=== PATIENT | female | born 1970 | race Caucasian/White ===

== ENCOUNTER 2018-04-13 08:11 | Emergency (ER) | payer OTHER ==
[2018-04-13] MEDS ORDERED: CLINDAMYCIN HCL 150 MG CAP ONE (08:31)
--- NOTE | 2018-04-13 08:33 | EDPHYS ---
Physician Documentation [facility] Name: Mojgan Hull Age: 47 yrs Sex: Female : 1970 Arrival Date: 04/13/2018 Time: 08:15 Bed 18 Private MD: None, None ED Physician Afshin Owusu HPI: 04/13 08:26 This 47 yrs old Female presents to ER via Ambulatory with complaints of rn Facial Swelling. 08:26 The patient presents with pain, swelling. Onset: The symptoms/episode began/occurred rn this morning. Modifying factors: The symptoms are alleviated by nothing, the symptoms are aggravated by nothing. Associated signs and symptoms: Pertinent positives: pain, redness in area, swelling. Severity of symptoms: At their worst the symptoms were mild, in the emergency department the symptoms are unchanged. The patient has not experienced similar symptoms in the past. Reports swelling to right upper gum and swelling of face, woke up like this, chronic dental issues. . 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 - Social history:: Smoking status: Patient/guardian denies using tobacco. - Family history:: not pertinent. - Hospitalizations: : No recent hospitalization is reported. ROS: 08:26 Constitutional: Negative for fever, chills, and weight loss, Eyes: Negative for injury, rn pain, redness, and discharge, ENT: + dental/gingival pain and swelling Neck: Negative for injury, pain, and swelling, Cardiovascular: Negative for chest pain, palpitations, and edema, Respiratory: Negative for shortness of breath, cough, wheezing, and pleuritic chest pain, Abdomen/GI: Negative for abdominal pain, nausea, vomiting, diarrhea, and constipation, MS/Extremity: Negative for injury and deformity, Skin: Negative for injury, rash, and discoloration, Neuro: Negative for headache, weakness, numbness, tingling, and seizure. Exam: 08:26 Constitutional: This is a well developed, well nourished patient who is awake, alert, rn and in no acute distress. Head/Face: Normocephalic, atraumatic. Eyes: Pupils equal round and reactive to light, extra-ocular motions intact. Lids and lashes normal. Conjunctiva and sclera are non-icteric and not injected. Cornea within normal limits. Periorbital areas with no swelling, redness, or edema. ENT: Right upper gum with 1cm swelling/fluctuance, + mild tenderness of buccal space without fluctuance. Neuro: Awake and alert, GCS 15, oriented to person, place, time, and situation. Cranial nerves II-XII grossly intact. Motor strength 5/5 in all extremities. Sensory grossly intact. Cerebellar exam normal. Normal gait. Vital Signs: 08:23 BP 140 / 97; Pulse 63; Resp 18 S; Pulse Ox 99% on R/A; iw MDM: 08:17 Patient medically screened. rn 08:26 Differential diagnosis: dental caries, gingivitis, dental abscess. Data reviewed: vital rn signs, nurses notes, and as a result, I will discharge patient. Counseling: I had a detailed discussion with the patient and/or guardian regarding: the historical points, exam findings, and any diagnostic results supporting the discharge/admit diagnosis, the need for outpatient follow up, to return to the emergency department if symptoms worsen or persist or if there are any questions or concerns that arise at home. Refusal of service: The patient/guardian displays adequate decision making capability and despite a detailed discussion of alternatives, benefits, risks, and consequences refuses: Incision and drainage of gingival abscess. Special discussion: Based on the history and exam findings, there is no indication for further emergent testing or inpatient evaluation. I discussed with the patient/guardian the need to see a dentist for further evaluation of the symptoms. ED course: Told patient she requires abx and drainage of abscess, she states would rather go to dentist, will give abx prescription, has insurance and able to f/u today/tomorrow. Return precautions given and understood. . Administered Medications: 08:49 Drug: Clindamycin 300 mg Route: PO; em 08:50 Follow up: Response: Medication administered at discharge. em Disposition: 04/13/18 08:32 Discharged to Home. Impression: Dental Abscess, Buccal space cellulitis. - Condition is Stable. - Discharge Instructions: Cellulitis, Dental Abscess. - Prescriptions for Clindamycin HCl 300 mg Oral Capsule - take 1 capsule by ORAL route every 6 hours for 10 days; 40 capsule. - Medication Reconciliation Form, Thank You Letter, Antibiotic Education, Prescription Opioid Use form. - Follow up: Private Physician; When: Upon discharge from the Emergency Department; Reason: Recheck today's complaints, Re-evaluation by your physician. - Problem is new. - Symptoms have improved. Signatures: Cody Castro, FAMILY CONSUMER SCIENCE FCS TEACHER FAMILY CONSUMER SCIENCE FCS TEACHER em Diane Burgess RN RN iw Afshin Owusu MD MD supervisor metal furniture assembly: (The following items were deleted from the chart) 08:28 08:26 Constitutional: This is a well developed, well nourished patient who is awake, rn alert, and in no acute distress. Head/Face: Normocephalic, atraumatic. ENT: Right upper gum with 1cm swelling/fluctuance, + mild tenderness of buccal space without fluctuance. Neuro: Awake and alert, GCS 15, oriented to person, place, time, and situation. Cranial nerves II-XII grossly intact. Motor strength 5/5 in all extremities. Sensory grossly intact. Cerebellar exam normal. Normal gait. rn 08:50 08:32 04/13/2018 08:32 Discharged to Home. Impression: Dental Abscess; Buccal space em cellulitis. Condition is Stable. Forms are Medication Reconciliation Form, Thank You Letter, Antibiotic Education, Prescription Opioid Use. Follow up: Private Physician; When: Upon discharge from the Emergency Department; Reason: Recheck today's complaints, Re-evaluation by your physician. Problem is new. Symptoms have improved. rn
--- NOTE | 2018-04-13 08:33 | ER ---
Nurse's Notes [facility] Name: Mojgan Hull Age: 47 yrs Sex: Female : 1970 Arrival Date: 04/13/2018 Time: 08:15 Bed 18 Private MD: None, None Diagnosis: Dental Abscess;Buccal space cellulitis Presentation: 04/13 08:22 Presenting complaint: Patient states: woke up with right sided facial swelling, states iw she feels a pus pocket on upper gums. Transition of care: patient was not received from another setting of care. Onset of symptoms was April 13, 2018. Initial Sepsis Screen: Does the patient meet any 2 criteria? No. Patient's initial sepsis screen is negative. Does the patient have a suspected source of infection? No. Patient's initial sepsis screen is negative. Care prior to arrival: None. 08:22 Method Of Arrival: Ambulatory iw 08:22 Acuity: KALEE 4 iw Triage Assessment: 08:24 General: Appears in no apparent distress. General: Behavior is calm, cooperative. Pain: em Complains of pain in right cheek Pain currently is 9 out of 10 on a pain scale. 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 - Social history:: Smoking status: Patient/guardian denies using tobacco. - Family history:: not pertinent. - Hospitalizations: : No recent hospitalization is reported. Screenin:24 Abuse screen: Denies threats or abuse. Nutritional screening: No deficits noted. em Tuberculosis screening: No symptoms or risk factors identified. Tuberculosis screening:. Fall Risk None identified. Assessment: 08:26 General: Appears in no apparent distress. Behavior is calm, cooperative. Pain: em Complains of pain in right cheek Pain currently is 9 out of 10 on a pain scale. Neuro: Level of Consciousness is awake, alert, Oriented to person, place, time, situation. Cardiovascular: Capillary refill < 3 seconds Patient's skin is warm and dry. Respiratory: Airway is patent Respiratory effort is even, unlabored, Respiratory pattern is regular, symmetrical. GI: Abdomen is round obese. : No signs and/or symptoms were reported regarding the genitourinary system. EENT: Oral mucosa is moist. Dental caries noted in upper left first molar (#14) and upper left second molar (#15). Derm: Skin is intact, Skin is pink, warm \T\ dry. Musculoskeletal: Range of motion: intact in all extremities. 08:40 Reassessment: Patient appears in no apparent distress at this time. I agree with above iw assessment by Cody Castro LVN. Vital Signs: 08:23 BP 140 / 97; Pulse 63; Resp 18 S; Pulse Ox 99% on R/A; iw ED Course: 08:15 Patient arrived in ED. mr 08:15 None, None is Private Physician. mr 08:17 Afshin Owusu MD is Attending Physician. rn 08:22 Triage completed. iw 08:24 Cody Castro LVN is Primary Nurse. em 08:25 Arm band placed on. em 08:25 Patient has correct armband on for positive identification. Bed in low position. Call em light in reach. 08:25 No provider procedures requiring assistance completed. Patient did not have IV access em during this emergency room visit. Administered Medications: 08:49 Drug: Clindamycin 300 mg Route: PO; em 08:50 Follow up: Response: Medication administered at discharge. em Outcome: 08:32 Discharge ordered by . rn 08:50 Discharged to home ambulatory. em 08:50 Condition: good 08:50 Discharge instructions given to patient. 08:50 Instructed on discharge instructions, follow up and referral plans. medication usage, Demonstrated understanding of instructions, follow-up care, medications, Prescriptions given X 1. 08:50 Patient left the ED. em Signatures: Amalia Martin Cody Castro LVN LVN em Diane Burgess RN RN iw Afshin Owusu MD MD sports team marketing intern: (The following items were deleted from the chart) 08:24 08:22 Acuity: KALEE 3 iw iw
== END 2018-04-13 08:50 | disposition home or self-care (01) ==
LOC: ER 08:11
DX: K12.2 Cellulitis and abscess of mouth (principal); K04.7 Periapical abscess without sinus; I10 Essential (primary) hypertension; Z88.0 Allergy status to penicillin; Z88.8 Allergy status to other drugs, medicaments and biological substances
CPT/HCPCS: 99283

== ENCOUNTER 2018-07-14 21:00 | Emergency (ER) | payer OTHER ==
[2018-07-14 21:28] LABS: Urine Blood 3+ (NEG); Urine Glucose NEGATIVE (NEG); Urine Protein 3+ (NEG); Urine Specific Gravity >1.030 (1.005-1.030); Urine pH 5.5 (5.0-7.0)
[2018-07-14] MEDS ORDERED: NA CHLORIDE 0.9% 1,000 ML ONE (22:05)
[2018-07-14 22:13] LABS: Absolute Lymphocytes (CBC) 2.6 K/uL (0.7-4.9); Absolute Monocytes 0.8 K/uL (0.1-1.3); Absolute Neutrophil 9.2 K/uL (1.8-8.0); Basophils % 0.2 % (0-1.3); Eosinophils % 0.9 % (0-4.4); Hematocrit 40.3 % (36.0-45.0); Lymphocytes % 20.5 % (15.3-44.8); MCH 29.9 pg (27.0-35.0); MCV 89.3 fL (80-100); MPV 10.1 fL (7.6-11.3); Monocytes % 6.4 % (3.3-12.3); RBC Red Blood Cell Count 4.52 M/uL (3.86-4.86)
[2018-07-14 22:20] LABS: Urine Bacteria <20 /HPF (<20); Urine Culture Reflex Order NOT NEEDED; Urine RBC 20-50 /HPF (NONE SEEN)
[2018-07-14 22:30] LABS: Bilirubin Direct 0.1 mg/dL (0-0.2); Bilirubin Total 0.3 mg/dL (0.2-1.0); Potassium 3.3 mmol/L (3.5-5.1); Protein, Total 7.6 g/dL (6.4-8.2)
[2018-07-14] MEDS ORDERED: ONDANSETRON 4 MG/2 ML VIAL ONE (23:03)
[2018-07-14] MEDS ORDERED: MORPHINE 4 MG/ML SYR ONE (23:03)
[2018-07-14] MEDS ORDERED: CEFTRIAXONE/SWI 1gm 1 GM/10 ML SYR ONE (23:03)
[2018-07-15] MEDS ORDERED: CIPROFLOXACIN HCL 500 MG TAB ONE (01:13)
--- NOTE | 2018-07-15 01:44 | EDPHYS ---
Physician Documentation [facility] Name: Mojgan Hull Age: 48 yrs Sex: Female : 1970 Arrival Date: 07/14/2018 Time: 21:01 Bed 26 Private MD: ED Physician Anthony Caldwell HPI: 07/14 22:52 This 48 yrs old Female presents to ER via Wheelchair with complaints of amelia Abdominal Pain, Vaginal Bleeding. 22:52 The patient presents with urinary symptoms, dysuria, frequency, hematuria. Onset: The amelia symptoms/episode began/occurred 2 day(s) ago. Modifying factors: The symptoms are alleviated by nothing, the symptoms are aggravated by nothing. Associated signs and symptoms: Pertinent positives: hematuria, nausea. Severity of symptoms: At their worst the symptoms were moderate, in the emergency department the symptoms are unchanged. The patient has not experienced similar symptoms in the past. Historical: - Allergies: 21:06 Pneumovax 23; la1 - PMHx: 21:06 blood clot in arm; Hypertension; la1 - Immunization history:: Adult Immunizations up to date. - Social history:: Smoking status: Patient/guardian denies using tobacco. - Ebola Screening: : No symptoms or risks identified at this time. - Family history:: not pertinent. ROS: 22:52 Constitutional: Negative for fever, chills, and weight loss, Eyes: Negative for injury, amelia pain, redness, and discharge, ENT: Negative for injury, pain, and discharge, Neck: Negative for injury, pain, and swelling, Cardiovascular: Negative for chest pain, palpitations, and edema, Respiratory: Negative for shortness of breath, cough, wheezing, and pleuritic chest pain, Back: Negative for injury and pain, MS/Extremity: Negative for injury and deformity, Skin: Negative for injury, rash, and discoloration, Neuro: Negative for headache, weakness, numbness, tingling, and seizure, Psych: Negative for depression, anxiety, suicide ideation, homicidal ideation, and hallucinations, Allergy/Immunology: Negative for hives, rash, and allergies, Endocrine: Negative for neck swelling, polydipsia, polyuria, polyphagia, and marked weight changes, Hematologic/Lymphatic: Negative for swollen nodes, abnormal bleeding, and unusual bruising. 22:52 Abdomen/GI: Positive for abdominal pain, of the suprapubic area. 22:52 : Positive for urinary symptoms, urinary frequency, hematuria, burning with urination. Exam: 22:52 Constitutional: This is a well developed, well nourished patient who is awake, alert, amelia and in no acute distress. Head/Face: Normocephalic, atraumatic. Eyes: Pupils equal round and reactive to light, extra-ocular motions intact. Lids and lashes normal. Conjunctiva and sclera are non-icteric and not injected. Cornea within normal limits. Periorbital areas with no swelling, redness, or edema. ENT: Nares patent. No nasal discharge, no septal abnormalities noted. Tympanic membranes are normal and external auditory canals are clear. Oropharynx with no redness, swelling, or masses, exudates, or evidence of obstruction, uvula midline. Mucous membranes moist. Neck: Trachea midline, no thyromegaly or masses palpated, and no cervical lymphadenopathy. Supple, full range of motion without nuchal rigidity, or vertebral point tenderness. No Meningismus. Chest/axilla: Normal chest wall appearance and motion. Nontender with no deformity. No lesions are appreciated. Cardiovascular: Regular rate and rhythm with a normal S1 and S2. No gallops, murmurs, or rubs. Normal PMI, no JVD. No pulse deficits. Respiratory: Lungs have equal breath sounds bilaterally, clear to auscultation and percussion. No rales, rhonchi or wheezes noted. No increased work of breathing, no retractions or nasal flaring. Back: No spinal tenderness. No costovertebral tenderness. Full range of motion. Skin: Warm, dry with normal turgor. Normal color with no rashes, no lesions, and no evidence of cellulitis. MS/ Extremity: Pulses equal, no cyanosis. Neurovascular intact. Full, normal range of motion. Neuro: Awake and alert, GCS 15, oriented to person, place, time, and situation. Cranial nerves II-XII grossly intact. Motor strength 5/5 in all extremities. Sensory grossly intact. Cerebellar exam normal. Normal gait. Psych: Awake, alert, with orientation to person, place and time. Behavior, mood, and affect are within normal limits. 22:52 Abdomen/GI: Inspection: distension. 22:52 : CVA tenderness, is absent. Vital Signs: 21:06 BP 157 / 107; Pulse 100; Resp 19; Temp 99.0(TE); Pulse Ox 100% on R/A; Weight 127.01 la1 kg; Height 5 ft. 10 in. (177.80 cm); 22:08 BP 155 / 105; Pulse 89; Resp 18 S; Temp 98.9(O); Pulse Ox 100% on R/A; Pain 8/10; jp3 07/15 01:28 BP 99 / 60; Pulse 104; Pulse Ox 96% on R/A; rv 01:55 BP 101 / 61; rv 07/14 21:06 Body Mass Index 40.18 (127.01 kg, 177.80 cm) la1 MDM: 07/14 21:51 Patient medically screened. [facility] 07/15 01:44 Data reviewed: vital signs, nurses notes, lab test result(s), radiologic studies, CT amelia scan. 07/14 21:23 Order name: Urine Dipstick--Ancillary (enter results); Complete Time: 21:51 [facility] 07/14 21:23 Order name: Urine --Ancillary (enter results); Complete Time: 21:51 [facility] 07/14 21:53 Order name: Amylase, Serum; Complete Time: 22:50 [facility] 07/14 21:53 Order name: Basic Metabolic Panel; Complete Time: 22:50 [facility] 07/14 21:53 Order name: CBC with Diff; Complete Time: 22:50 [facility] 07/14 21:53 Order name: Creatinine for Radiology; Complete Time: 22:50 [facility] 07/14 21:53 Order name: Hepatic Function; Complete Time: 22:50 [facility] 07/14 21:53 Order name: Lipase; Complete Time: 22:50 [facility] 07/14 21:53 Order name: Urine Microscopic Only; Complete Time: 22:50 [facility] 07/14 21:53 Order name: Urine Culture [facility] 07/14 22:52 Order name: CT Abd/Pelvis - W/Contrast: iv only [facility] 07/14 21:53 Order name: IV Saline Lock; Complete Time: 22:00 [facility] 07/14 21:53 Order name: Labs collected and sent; Complete Time: 22:00 [facility] Administered Medications: 07/14 22:02 Drug: NS 0.9% 1000 ml Route: IV; Rate: 1 bolus; Site: right antecubital; rv 23:45 Follow up: IV Status: Completed infusion rv 23:15 Drug: Rocephin - (cefTRIAXone) 1 grams Route: IVPB; Infused Over: 30 mins; Site: right rv antecubital; 23:45 Follow up: IV Status: Completed infusion rv 23:15 Drug: morphine 4 mg Route: IVP; Site: right antecubital; rv 23:45 Follow up: Response: No adverse reaction rv 23:15 Drug: Zofran 4 mg Route: IVP; Site: right antecubital; rv 23:45 Follow up: Response: No adverse reaction rv 07/15 01:14 Drug: Cipro 500 mg Route: PO; rv 01:54 Follow up: Response: No adverse reaction rv :54 Drug: Potassium Effervescent Tablet 25 mEq Route: PO; rv :54 Follow up: Response: Medication administered at discharge. rv Disposition: 07/15/18 01:43 Discharged to Home. Impression: Abdominal tenderness, Obesity, unspecified, Cystitis. - Condition is Stable. - Discharge Instructions: Abdominal Pain, Adult, Dysuria, Obesity, Adult, Abdominal Pain, Adult, [id number], Pelvic Rest, Obesity, Adult, [id number]. - Prescriptions for Pyridium 200 mg Oral Tablet - take 1 tablet by ORAL route every 8 hours for 3 days; 9 tablet. Tylenol- Codeine #3 300-30 mg Oral Tablet - take 2 tablets by ORAL route every 6 hours As needed; 24 tablet. Cipro 500 mg Oral Tablet - take 1 tablet by ORAL route every 12 hours for 7 days; 14 tablet. Bactrim DS 800- 160 mg Oral Tablet - take 1 tablet by ORAL route every 12 hours for 5 days; 10 tablet. - Medication Reconciliation Form, Thank You Letter, Antibiotic Education, Prescription Opioid Use form. - Follow up: Private Physician; When: 2 - 3 days; Reason: Recheck today's complaints, Continuance of care, Re-evaluation by your physician. - Problem is new. - Symptoms have improved. Signatures: Dispatcher [employer] EDAnthony Ambriz MD MD cha Attema, Lee, RN RN la1 Jon Cano RN RN rv Corrections: (The following items were deleted from the chart) 07/14 21:06 21:06 Allergies: PENICILLINS; la1 la1 22:30 21:53 Transvaginal Study (Probe)+[id number] ordered. [facility] 07/15 01:56 01:43 07/15/2018 01:43 Discharged to Home. Impression: Abdominal tenderness; Obesity, rv unspecified; Cystitis. Condition is Stable. Discharge Instructions: Abdominal Pain, Adult, Dysuria, Obesity, Adult, Abdominal Pain, Adult, [id number], Pelvic Rest, Obesity, Adult, [id number]. Prescriptions for Pyridium 200 mg Oral Tablet - take 1 tablet by ORAL route every 8 hours for 3 days; 9 tablet, Tylenol-Codeine #3 300-30 mg Oral Tablet - take 2 tablets by ORAL route every 6 hours As needed; 24 tablet, Cipro 500 mg Oral Tablet - take 1 tablet by ORAL route every 12 hours for 7 days; 14 tablet. and Forms are Medication Reconciliation Form, Thank You Letter, Antibiotic Education, Prescription Opioid Use. Follow up: Private Physician; When: 2 - 3 days; Reason: Recheck today's complaints, Continuance of care, Re-evaluation by your physician. Problem is new. Symptoms have improved. amelia
--- NOTE | 2018-07-15 01:44 | ER ---
Nurse's Notes [facility] Name: Mojgan Hull Age: 48 yrs Sex: Female : 1970 Arrival Date: 07/14/2018 Time: 21:01 Bed 26 Private MD: Diagnosis: Abdominal tenderness;Obesity, unspecified;Cystitis Presentation: 07/14 21:05 Presenting complaint: Patient states: I have been having very lower suprapubic pain and la1 extreme pain with urinations, there is also blood in my urine. Transition of care: patient was not received from another setting of care. Onset of symptoms was July 14, 2018. Risk Assessment: Do you want to hurt yourself or someone else? Patient reports no desire to harm self or others. Initial Sepsis Screen: Does the patient meet any 2 criteria? No. Patient's initial sepsis screen is negative. Does the patient have a suspected source of infection? No. Patient's initial sepsis screen is negative. Care prior to arrival: None. 21:05 Method Of Arrival: Wheelchair la1 21:05 Acuity: KALEE 3 la1 Historical: - Allergies: 21:06 Pneumovax 23; la1 - PMHx: 21:06 blood clot in arm; Hypertension; la1 - Immunization history:: Adult Immunizations up to date. - Social history:: Smoking status: Patient/guardian denies using tobacco. - Ebola Screening: : No symptoms or risks identified at this time. - Family history:: not pertinent. Screenin:31 Abuse screen: Denies threats or abuse. Denies injuries from another. Nutritional rv screening: No deficits noted. Tuberculosis screening: No symptoms or risk factors identified. Fall Risk None identified. Assessment: 21:30 General: Appears in no apparent distress. uncomfortable, Behavior is calm, cooperative. rv Pain: Complains of pain in abdomen. Neuro: Level of Consciousness is awake, alert, obeys commands, Oriented to person, place, time, situation. Cardiovascular: Capillary refill < 3 seconds. Respiratory: Airway is patent. GI: Bowel sounds present X 4 quads. Abd is soft and non tender X 4 quads. : Reports vaginal bleeding that is moderate flow. EENT: No signs and/or symptoms were reported regarding the EENT system. Derm: Skin is intact. 07/15 00:30 Reassessment: Patient appears in no apparent distress at this time. Patient and/or rv family updated on plan of care and expected duration. Pain level reassessed. Patient is alert, oriented x 3, equal unlabored respirations, skin warm/dry/pink. AWAITING CT SCAN RESULT. Vital Signs: 07/14 21:06 BP 157 / 107; Pulse 100; Resp 19; Temp 99.0(TE); Pulse Ox 100% on R/A; Weight 127.01 la1 kg; Height 5 ft. 10 in. (177.80 cm); 22:08 BP 155 / 105; Pulse 89; Resp 18 S; Temp 98.9(O); Pulse Ox 100% on R/A; Pain 8/10; jp3 07/15 01:28 BP 99 / 60; Pulse 104; Pulse Ox 96% on R/A; rv 01:55 BP 101 / 61; rv 07/14 21:06 Body Mass Index 40.18 (127.01 kg, 177.80 cm) la1 ED Course: 07/14 21:01 Patient arrived in ED. ds1 21:05 Triage completed. la1 21:06 Arm band placed on left wrist. la1 21:10 Urine collected: clean catch specimen, clear, tea colored. jp3 21:31 Patient has correct armband on for positive identification. Bed in low position. Call rv light in reach. Side rails up X 1. Adult w/ patient. Pulse ox on. NIBP on. 21:31 Side rails up X2. Pillow given. Assisted to bedside commode. jp3 21:35 Inserted saline lock: 22 gauge in right antecubital area, using aseptic technique. jp3 Blood collected. 21:51 Anthony Caldwell MD is Attending Physician. [facility] 22:00 Initial lab(s) drawn, by mn, sent to lab. jp3 22:07 Urine Culture Sent. jp3 22:07 Amylase, Serum Sent. jp3 22:07 Basic Metabolic Panel Sent. jp3 22:07 CBC with Diff Sent. jp3 22:08 Hepatic Function Sent. jp3 22:08 Creatinine for Radiology Sent. jp3 22:08 Lipase Sent. jp3 22:08 Urine Microscopic Only Sent. jp3 22:12 Warm blanket given. jp3 22:29 Assisted to bedside commode. jp3 23:[address] via stretcher. kw1 23:46 CT Abd/Pelvis - W/Contrast: iv only In Process Unspecified. EDMS 23:47 CT completed. Patient tolerated procedure well. Patient moved back from CT. kw1 07/15 01:55 No provider procedures requiring assistance completed. IV discontinued, bleeding rv controlled, No redness/swelling at site. Pressure dressing applied. Administered Medications: 07/14 22:02 Drug: NS 0.9% 1000 ml Route: IV; Rate: 1 bolus; Site: right antecubital; rv 23:45 Follow up: IV Status: Completed infusion rv 23:15 Drug: Rocephin - (cefTRIAXone) 1 grams Route: IVPB; Infused Over: 30 mins; Site: right rv antecubital; 23:45 Follow up: IV Status: Completed infusion rv 23:15 Drug: morphine 4 mg Route: IVP; Site: right antecubital; rv 23:45 Follow up: Response: No adverse reaction rv 23:15 Drug: Zofran 4 mg Route: IVP; Site: right antecubital; rv 23:45 Follow up: Response: No adverse reaction rv 07/15 01:14 Drug: Cipro 500 mg Route: PO; rv 01:54 Follow up: Response: No adverse reaction rv 01:54 Drug: Potassium Effervescent Tablet 25 mEq Route: PO; rv 01:54 Follow up: Response: Medication administered at discharge. rv Outcome: 01:43 Discharge ordered by . amelia 01:55 Discharged to home ambulatory. rv 01:55 Condition: good 01:55 Discharge instructions given to patient, family, Instructed on discharge instructions, follow up and referral plans. medication usage, Prescriptions given X 4. 01:56 Patient left the ED. rv Addendum: 07/17/2018 07:48 Addendum: Culture Results: Positive urine culture. No further action required. Bacteria s s sensitive to prescribed antibiotic. Signatures: Dispatcher [employer] EDMS Anthony Caldwell MD MD cha Sanford, Demi ds1 Kecia Kay RN RN ss Attema, Lee, RN RN la1 Diane Payne kw1 Jon Cano RN RN rv Prem Estrada jp3 Corrections: (The following items were deleted from the chart) 07/14 21:06 21:06 Allergies: PENICILLINS; la1 la1
[2018-07-15] MEDS ORDERED: POTASSIUM 25 MEQ EFFERV TAB ONE (01:58)
--- NOTE | 2018-07-15 09:17 | RAD REPORT ---
EXAM DESCRIPTION: CT - Abdomen Pelvis W Contrast - 07/15/2018 7:00 am CLINICAL HISTORY: Abdominal pain/hematuria. Dysuria COMPARISON: none. TECHNIQUE: Computed axial tomography of the abdomen pelvis was obtained. 100 cc Isovue-300 was admin istered intravenously. Oral contrast was not requested which limits evaluation of bowel. All CT scans are performed using dose optimization technique as appropriate and may include automated exposure control or mA/KV adjustment according to patient size. A a preliminary report was generated by [employer] and reviewed prior to this dictation. FINDINGS: The liver has a diminished attenuation consistent with infiltration. The gallbladder has been removed. Mild prominence of the biliary tree is present. Splenic granulomata is noted. The pancreas, adrenals and kidneys appear unremarkable. Small umbilical hernia contains. Hysterectomy has been performed. Mild stranding is present adjacent to the bladder. There is no evidence of diverticulitis. Spondylolysis involves L5 IMPRESSION: Mild stranding adjacent the bladder may cystitis. Prominence of the biliary tree probably is physiologic in this patient status cholecystectomy. This should correlated clinically and with appropriate lab values
== END 2018-07-15 01:56 | disposition home or self-care (01) ==
LOC: ER 21:00
DX: R10.819 Abdominal tenderness, unspecified site (principal); N30.91 Cystitis, unspecified with hematuria; I10 Essential (primary) hypertension; Z88.7 Allergy status to serum and vaccine; E66.9 Obesity, unspecified; Z68.41 Body mass index [BMI] 40.0-44.9, adult
CPT/HCPCS: 36415; 74177; 80048; 80076; 81003; 81015; 81025; 82150; 83690; 85025; 87077; 87086; 87088; 87186; 96361; 96365; 96375; 99284; J0696; J2405; J7030; Q9967

== ENCOUNTER 2018-08-14 16:27 | Emergency (ER) | payer OTHER ==
--- NOTE | 2018-08-14 17:26 | EDPHYS ---
Physician Documentation [facility] Name: Mojgan Hull Age: 48 yrs Sex: Female : 1970 Arrival Date: 08/14/2018 Time: 16:28 Bed Treatment Private MD: None, None ED Physician Anthony Caldwell HPI: 08/14 17:27 This 48 yrs old Female presents to ER via Ambulatory with complaints of snw Toothache. 17:27 The patient presents with broken tooth/teeth, pain. The problem is located in the right snw buccal mucosa. Onset: The symptoms/episode began/occurred gradually. Duration: The symptoms are continuous. Severity of symptoms: At their worst the symptoms were moderate, earlier today. The patient has experienced similar episodes in the past. It is unknown whether or not the patient has recently seen a physician. 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 - Social history:: Smoking status: Patient/guardian denies using tobacco. - Ebola Screening: : Patient negative for fever greater than or equal to 101.5 degrees Fahrenheit, and additional compatible Ebola Virus Disease symptoms Patient denies exposure to infectious person Patient denies travel to an Ebola-affected area in the 21 days before illness onset No symptoms or risks identified at this time. ROS: 17:25 Constitutional: Negative for fever, chills, and weight loss, Eyes: Negative for injury, snw pain, redness, and discharge, Neck: Negative for injury, pain, and swelling, Cardiovascular: Negative for chest pain, palpitations, and edema, Respiratory: Negative for shortness of breath, cough, wheezing, and pleuritic chest pain, Abdomen/GI: Negative for abdominal pain, nausea, vomiting, diarrhea, and constipation, Back: Negative for injury and pain, : Negative for injury, bleeding, discharge, and swelling, MS/Extremity: Negative for injury and deformity, Skin: Negative for injury, rash, and discoloration, Neuro: Negative for headache, weakness, numbness, tingling, and seizure. 17:25 ENT: Positive for dental pain, Teeth pain Exam: 17:24 Constitutional: This is a well developed, well nourished patient who is awake, alert, snw and in no acute distress. Head/Face: Normocephalic, atraumatic. Eyes: Pupils equal round and reactive to light, extra-ocular motions intact. Lids and lashes normal. Conjunctiva and sclera are non-icteric and not injected. Cornea within normal limits. Periorbital areas with no swelling, redness, or edema. Neck: Trachea midline, no thyromegaly or masses palpated, and no cervical lymphadenopathy. Supple, full range of motion without nuchal rigidity, or vertebral point tenderness. No Meningismus. Chest/axilla: Normal chest wall appearance and motion. Nontender with no deformity. No lesions are appreciated. Cardiovascular: Regular rate and rhythm with a normal S1 and S2. No gallops, murmurs, or rubs. Normal PMI, no JVD. No pulse deficits. Respiratory: Lungs have equal breath sounds bilaterally, clear to auscultation and percussion. No rales, rhonchi or wheezes noted. No increased work of breathing, no retractions or nasal flaring. Abdomen/GI: Soft, non-tender, with normal bowel sounds. No distension or tympany. No guarding or rebound. No evidence of tenderness throughout. Back: No spinal tenderness. No costovertebral tenderness. Full range of motion. Skin: Warm, dry with normal turgor. Normal color with no rashes, no lesions, and no evidence of cellulitis. MS/ Extremity: Pulses equal, no cyanosis. Neurovascular intact. Full, normal range of motion. Neuro: Awake and alert, GCS 15, oriented to person, place, time, and situation. Cranial nerves II-XII grossly intact. Motor strength 5/5 in all extremities. Sensory grossly intact. Cerebellar exam normal. Normal gait. Psych: Awake, alert, with orientation to person, place and time. Behavior, mood, and affect are within normal limits. 17:24 ENT: TM's: are normal, Nose: is normal, Mouth: Oral mucosa: normal, Dental exam: missing teeth, diffusely, pain, that is moderate, diffusely. Vital Signs: 16:38 BP 125 / 66; Pulse 91 MON; Resp 18 S; Temp 97.8; Pulse Ox 98% on R/A; Height 5 ft. 10 sg in. (177.80 cm); Pain 10; MDM: 17:13 Patient medically screened. snw 17:26 Data reviewed: vital signs, nurses notes. Data interpreted: Pulse oximetry: on room air snw is 98 %. Interpretation: normal. Counseling: I had a detailed discussion with the patient and/or guardian regarding: the historical points, exam findings, and any diagnostic results supporting the discharge/admit diagnosis, the need for outpatient follow up, to return to the emergency department if symptoms worsen or persist or if there are any questions or concerns that arise at home. Special discussion: Based on the history and exam findings, there is no indication for further emergent testing or inpatient evaluation. I discussed with the patient/guardian the need to see a dentist for further evaluation of the symptoms. I discussed with the patient/guardian the need to see the primary care provider for further evaluation of the symptoms. Administered Medications: No medications were administered Disposition: 08/15 07:26 Co-signature as Attending Physician, Anthony Caldwell MD I agree with the assessment and amelia plan of care. Chart complete. Disposition: 08/14/18 17:18 Discharged to Home. Impression: Diseases of pulp and periapical tissues. - Condition is Stable. - Discharge Instructions: Dental Caries, Adult, Dental Pain, Dental Extraction, Care After, Preventive Dental Care, Adult. - Prescriptions for chlorhexidine gluconate 0.12 % Mucous Membrane mouthwash - place 15 milliliter by MUCOUS MEMBRANE route 2 times per day after brushing teeth, swish in mouth for 30 seconds then spit out; 480 milliliter. Clindamycin HCl 300 mg Oral Capsule - take 1 capsule by ORAL route every 6 hours for 10 days; 40 capsule. Diclofenac Sodium 75 mg Oral Tablet Sustained Release - take 1 tablet by ORAL route 2 times per day; 30 tablet. - Medication Reconciliation Form, Thank You Letter, Antibiotic Education, Prescription Opioid Use form. - Follow up: Private Physician; When: 1 - 2 days; Reason: Recheck today's complaints, Continuance of care, Re-evaluation by your physician. Follow up: Emergency Department; When: As needed; Reason: Worsening of condition. Signatures: Kuldip Salamanca RN RN sg Anderson, Corey, MD MD cha Therrien, Shelly, INSTRUMENT TECH-C INSTRUMENT TECH-Csnw Diane Burgess RN RN iw Corrections: (The following items were deleted from the chart) 08/14 17:45 17:18 08/14/2018 17:18 Discharged to Home. Impression: Diseases of pulp and periapical iw tissues. Condition is Stable. Forms are Medication Reconciliation Form, Thank You Letter, Antibiotic Education, Prescription Opioid Use. Follow up: Private Physician; When: 1 - 2 days; Reason: Recheck today's complaints, Continuance of care, Re-evaluation by your physician. Follow up: Emergency Department; When: As needed; Reason: Worsening of condition. snw
--- NOTE | 2018-08-14 17:26 | ER ---
Nurse's Notes [facility] Name: Mojgan Hull Age: 48 yrs Sex: Female : 1970 Arrival Date: 08/14/2018 Time: 16:28 Bed Treatment Private MD: None, None Diagnosis: Diseases of pulp and periapical tissues Presentation: 08/14 16:33 Initial Sepsis Screen: Does the patient meet any 2 criteria?. Care prior to arrival: sg None. 16:33 Acuity: KALEE 4 sg 16:35 Presenting complaint: Patient states: Right side bottom toothache since yesterday, sg reports nausea and feeling weak, pt reports dizziness yesterday and has not felt right all day today. Transition of care: patient was not received from another setting of care. Onset of symptoms was August 14, 2018. Risk Assessment: Do you want to hurt yourself or someone else? Patient reports no desire to harm self or others. Initial Sepsis Screen: Does the patient have a suspected source of infection? Yes: Other: tooth abscess. 16:35 Method Of Arrival: Ambulatory sg Triage Assessment: 17:30 General: Appears in no apparent distress. Behavior is calm, cooperative. iw 17:35 EENT: Reports pain. 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 - Social history:: Smoking status: Patient/guardian denies using tobacco. - Ebola Screening: : Patient negative for fever greater than or equal to 101.5 degrees Fahrenheit, and additional compatible Ebola Virus Disease symptoms Patient denies exposure to infectious person Patient denies travel to an Ebola-affected area in the 21 days before illness onset No symptoms or risks identified at this time. Screenin:40 Abuse screen: Denies threats or abuse. Denies injuries from another. Nutritional iw screening: No deficits noted. Tuberculosis screening: No symptoms or risk factors identified. Fall Risk None identified. Assessment: 17:00 General: Appears in no apparent distress. comfortable. iw 17:00 Pain: Complains of pain in right buccal mucosa. Neuro: Level of Consciousness is awake, iw alert, obeys commands, Oriented to person, place, time. Cardiovascular: Capillary refill < 3 seconds in bilateral fingers Patient's skin is warm and dry. Respiratory: Respiratory effort is even, unlabored, Respiratory pattern is regular, symmetrical. EENT: Derm: Skin is intact, is healthy with good turgor. Musculoskeletal: Range of motion: intact in all extremities. Vital Signs: 16:38 BP 125 / 66; Pulse 91 MON; Resp 18 S; Temp 97.8; Pulse Ox 98% on R/A; Height 5 ft. 10 sg in. (177.80 cm); Pain 10/10; ED Course: 16:28 Patient arrived in ED. sb2 16:29 None, None is Private Physician. sb2 16:33 Triage completed. sg 16:33 Arm band placed on. EKG completed in triage. Results shown to MD. sg 17:00 Patient has correct armband on for positive identification. iw 17:13 Leslye Jones FNP-C is PHCP. snw 17:13 Anthony Caldwell MD is Attending Physician. snw 17:21 Diane Burgess, RN is Primary Nurse. iw 17:44 No provider procedures requiring assistance completed. Patient did not have IV access iw during this emergency room visit. Administered Medications: No medications were administered Outcome: 17:18 Discharge ordered by MD. snw 17:44 Discharged to home ambulatory. iw 17:44 Condition: good 17:44 Discharge instructions given to patient, Instructed on discharge instructions, follow up and referral plans. medication usage, Demonstrated understanding of instructions, follow-up care, medications, Prescriptions given X 3. 17:45 Patient left the ED. iw Signatures: Kuldip Salamanca RN CHACHO Leslye Jones FNP-C FNP-CsnDiane Interiano RN RN Martha Rodrigues sb2 Corrections: (The following items were deleted from the chart) 19:41 16:40 General: Appears in no apparent distress. comfortable, iw iw
== END 2018-08-14 17:45 | disposition home or self-care (01) ==
LOC: ER 16:27
DX: K04.90 Unspecified diseases of pulp and periapical tissues (principal); Z88.0 Allergy status to penicillin; Z88.8 Allergy status to other drugs, medicaments and biological substances
CPT/HCPCS: 99282

== ENCOUNTER 2018-12-03 17:13 | Emergency (ER) | payer OTHER ==
--- OUTSIDE RECORDS SUMMARY | 2018-12-03 17:15 | XMS REPORT ---
:1970 [facility] Address [address] [place] [address] Care Team Providers Name Role Phone Unavailable Unavailable Unavailable Payers Payer Name Policy Type Policy Number Effective Date Expiration Date Problems This patient has no known problems. Allergies, Adverse Reactions, Alerts Allergy Allergy Status Severity Reaction(s) Onset Inactive Treating Comments Name Type Date Date Clinician No Known DA Active U 2018-08 Allergies -13 00:00:0 0 Medications This patient has no known medications.
[2018-12-03] MEDS ORDERED: CYCLOBENZAPRINE 10 MG TAB ONE (18:20)
[2018-12-03] MEDS ORDERED: HYDROCODONE/APAP 10/325 TAB ONE (18:30)
--- NOTE | 2018-12-03 18:36 | RAD REPORT ---
EXAM DESCRIPTION: RAD - Foot Right 3 View - 12/03/2018 6:25 pm CLINICAL HISTORY: PAIN COMPARISON: Foot Right 3 View dated 07/13/2016 FINDINGS: No fracture or dislocation of the right foot is seen. Prominent posterior and plantar calc aneal spurs identified.
--- NOTE | 2018-12-03 18:43 | ER ---
Nurse's Notes [facility] Name: Mojgan Hull Age: 48 yrs Sex: Female : 1970 Arrival Date: 12/03/2018 Time: 17:18 Bed 20 Private MD: None, None Diagnosis: Plantar calcaneal spur;Plantar fascial fibromatosis Presentation: 12/03 17:18 Presenting complaint: Patient states: i have an R ankle issue for a while now, its hj getting where i cant stand on it; denies trauma to the area; reports tingling and numbness; reports pain all the way to the calf area; haven't taken Xarelto for a year for arm DVT;. Transition of care: patient was not received from another setting of care. Onset of symptoms was December 03, 2018. Risk Assessment: Do you want to hurt yourself or someone else? Patient reports no desire to harm self or others. Initial Sepsis Screen: Does the patient meet any 2 criteria? No. Patient's initial sepsis screen is negative. Does the patient have a suspected source of infection? No. Patient's initial sepsis screen is negative. Care prior to arrival: None. 17:18 Method Of Arrival: Ambulatory 17:18 Acuity: KALEE 4 hj Triage Assessment: 17:21 General: Appears in no apparent distress. uncomfortable, Behavior is calm, cooperative, hj appropriate for age. Pain: Complains of pain in right leg. 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 - Social history:: Smoking status: Patient/guardian denies using tobacco, Patient/guardian denies using alcohol. - Ebola Screening: : Patient negative for fever greater than or equal to 101.5 degrees Fahrenheit, and additional compatible Ebola Virus Disease symptoms Patient denies exposure to infectious person Patient denies travel to an Ebola-affected area in the 21 days before illness onset. Screenin:21 Abuse screen: Denies threats or abuse. Denies injuries from another. Nutritional hj screening: No deficits noted. Tuberculosis screening: No symptoms or risk factors identified. Fall Risk None identified. Assessment: 17:49 General: Appears in no apparent distress. uncomfortable, Behavior is calm, cooperative, em Denies fever. Pain: Complains of pain in right foot Pain currently is 8 out of 10 on a pain scale. Neuro: Level of Consciousness is awake, alert, obeys commands, Oriented to person, place, time, situation. Cardiovascular: Patient's skin is warm and dry. Respiratory: Airway Respiratory effort is even, unlabored, Respiratory pattern is regular, symmetrical. GI: Abdomen is round non-distended. Derm: Skin is intact, is healthy with good turgor, Skin is pink, warm \T\ dry. Musculoskeletal: Range of motion: intact in all extremities, Reports pain in right foot since last month. Pain is 8 out of 10 on a pain scale. 18:45 Reassessment: Patient appears in no apparent distress at this time. Patient and/or em family updated on plan of care and expected duration. Pain level reassessed. Patient is alert, oriented x 3, equal unlabored respirations, skin warm/dry/pink. Vital Signs: 17:21 BP 126 / 67; Pulse 85; Resp 18; Temp 97.0(TE); Pulse Ox 99% on R/A; Weight 135.17 kg; hj Height 5 ft. 10 in. (177.80 cm); Pain 8/10; 17:21 Body Mass Index 42.76 (135.17 kg, 177.80 cm) ED Course: 17:18 Patient arrived in ED. sb2 17:18 None, None is Private Physician. sb2 17:19 Triage completed. hj 17:21 Arm band placed on left wrist. hj 17:23 Patient has correct armband on for positive identification. Placed in gown. Bed in low hj position. Call light in reach. Side rails up X 1. Adult w/ patient. 17:39 Matthew Lora NP is PHCP. pm1 17:39 Anthony Caldwell MD is Attending Physician. pm1 17:51 Cody Castro LVN is Primary Nurse. em 18:25 Foot Right 3 View XRAY In Process Unspecified. EDMS 19:03 No provider procedures requiring assistance completed. Patient did not have IV access em during this emergency room visit. Administered Medications: 18:18 Drug: [place] 10 mg-325 mg 1 tabs Route: PO; em 19:04 Follow up: Response: No adverse reaction; Pain is decreased em 18:18 Drug: Flexeril 10 mg Route: PO; em 19:03 Follow up: Response: No adverse reaction; Pain is decreased em Outcome: 18:42 Discharge ordered by MD. pm1 19:03 Discharged to home ambulatory. em 19:03 Condition: good 19:03 Discharge instructions given to patient, Instructed on discharge instructions, follow up and referral plans. no drinking with medication, no driving heavy equipment, medication usage, Demonstrated understanding of instructions, follow-up care, medications, Prescriptions given X 2. 19:07 Patient left the ED. em Signatures: Dispatcher [employer] EDMS Cody Castro LVN DESIGN CHECKER em Dexter Quesada RN RN Matthew Fishman NP OBIEE LEAD DEVELOPER pm1 Martha Rodrigues sb2 Corrections: (The following items were deleted from the chart) 17:22 17:18 Presenting complaint: Patient states: i have an R ankle issue for a while now, hj its getting where i cant stand on it; denies trauma to the area; reports tingling and numbness; reports pain all the way to the calf area; hj 17:23 17:21 135.17 kg; Height 5 ft. 10 in.; BMI: 42.7; Pain 8/10; hj hj 17:24 17:21 Pulse 85bpm; Resp 18bpm; Pulse Ox 99% RA; Temp 97.0F Temporal; 135.17 kg; Height hj 5 ft. 10 in.; BMI: 42.7; Pain 8/10; hj
--- NOTE | 2018-12-03 18:43 | EDPHYS ---
Physician Documentation [facility] Name: Mojgan Hull Age: 48 yrs Sex: Female : 1970 Arrival Date: 12/03/2018 Time: 17:18 Bed 20 Private MD: None, None ED Physician Anthony Caldwell HPI: 12/03 18:11 This 48 yrs old Female presents to ER via Ambulatory with complaints of Right pm1 Foot Pain. 18:11 The patient presents with pain. The complaints affect the right foot. Context: The pm1 problem was sustained at home, resulted from an unknown cause, Mechanism of Injury: Unknown the patient can fully bear weight, the patient is able to ambulate. Onset: The symptoms/episode began/occurred 3 month(s) ago. Modifying factors: the symptoms are aggravated by weight bearing. Associated signs and symptoms: Pertinent negatives: calf tenderness, fever, nausea, numbness, tingling, vomiting. Severity of symptoms: in the emergency department the symptoms are actually worse. The patient has not experienced similar symptoms in the past. The patient has not recently seen a physician. 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 - Social history:: Smoking status: Patient/guardian denies using tobacco, Patient/guardian denies using alcohol. - Ebola Screening: : Patient negative for fever greater than or equal to 101.5 degrees Fahrenheit, and additional compatible Ebola Virus Disease symptoms Patient denies exposure to infectious person Patient denies travel to an Ebola-affected area in the 21 days before illness onset. ROS: 18:11 MS/extremity: Positive for pain, of the right foot, Negative for decreased range of pm1 motion, deformity. 18:11 Constitutional: Negative for fever, chills, and weight loss, Eyes: Negative for injury, pain, redness, and discharge, ENT: Negative for injury, pain, and discharge, Neck: Negative for injury, pain, and swelling, Cardiovascular: Negative for chest pain, palpitations, and edema, Respiratory: Negative for shortness of breath, cough, wheezing, and pleuritic chest pain, Abdomen/GI: Negative for abdominal pain, nausea, vomiting, diarrhea, and constipation, Back: Negative for injury and pain, : Negative for injury, bleeding, discharge, and swelling, Skin: Negative for injury, rash, and discoloration, Neuro: Negative for headache, weakness, numbness, tingling, and seizure. Exam: 18:11 Constitutional: This is a well developed, well nourished patient who is awake, alert, pm1 and in no acute distress. Head/Face: Normocephalic, atraumatic. Eyes: Pupils equal round and reactive to light, extra-ocular motions intact. Lids and lashes normal. Conjunctiva and sclera are non-icteric and not injected. Cornea within normal limits. Periorbital areas with no swelling, redness, or edema. ENT: Nares patent. No nasal discharge, no septal abnormalities noted. Tympanic membranes are normal and external auditory canals are clear. Oropharynx with no redness, swelling, or masses, exudates, or evidence of obstruction, uvula midline. Mucous membranes moist. Neck: Trachea midline, no thyromegaly or masses palpated, and no cervical lymphadenopathy. Supple, full range of motion without nuchal rigidity, or vertebral point tenderness. No Meningismus. Chest/axilla: Normal chest wall appearance and motion. Nontender with no deformity. No lesions are appreciated. Cardiovascular: Regular rate and rhythm with a normal S1 and S2. No gallops, murmurs, or rubs. Normal PMI, no JVD. No pulse deficits. Respiratory: Lungs have equal breath sounds bilaterally, clear to auscultation and percussion. No rales, rhonchi or wheezes noted. No increased work of breathing, no retractions or nasal flaring. Abdomen/GI: Soft, non-tender, with normal bowel sounds. No distension or tympany. No guarding or rebound. No evidence of tenderness throughout. Back: No spinal tenderness. No costovertebral tenderness. Full range of motion. Skin: Warm, dry with normal turgor. Normal color with no rashes, no lesions, and no evidence of cellulitis. 18:11 Musculoskeletal/extremity: Extremities: grossly normal except: noted in the ball of right foot, arch of right foot and heel of right foot: pain, There is no evidence of decreased ROM, deformity, ecchymosis, erythema, DVT Exam: No signs of deep vein thrombosis. no pain, no swelling, no tenderness, negative Homans' sign noted on exam, no appreciated bluish discoloration, no erythema, no increased warmth. 18:11 Neuro: Orientation: is normal, Motor: is normal, moves all fours. Vital Signs: 17:21 BP 126 / 67; Pulse 85; Resp 18; Temp 97.0(TE); Pulse Ox 99% on R/A; Weight 135.17 kg; hj Height 5 ft. 10 in. (177.80 cm); Pain 8/10; 17:21 Body Mass Index 42.76 (135.17 kg, 177.80 cm) hj MDM: 17:39 Patient medically screened. pm1 18:15 Data reviewed: vital signs. pm1 18:39 Data interpreted: Pulse oximetry: on room air is 99 %. Interpretation: normal. pm1 Counseling: I had a detailed discussion with the patient and/or guardian regarding: the historical points, exam findings, and any diagnostic results supporting the discharge/admit diagnosis, radiology results, the need for outpatient follow up, for definitive care, a computer programming professor, to return to the emergency department if symptoms worsen or persist or if there are any questions or concerns that arise at home. 12/03 17:45 Order name: Foot Right 3 View XRAY; Complete Time: 18:38 pm1 Administered Medications: 18:18 Drug: [place] 10 mg-325 mg 1 tabs Route: PO; em 19:04 Follow up: Response: No adverse reaction; Pain is decreased em 18:18 Drug: Flexeril 10 mg Route: PO; em 19:03 Follow up: Response: No adverse reaction; Pain is decreased em Disposition: 12/04 07:22 Co-signature as Attending Physician, Anthony Caldwell MD I agree with the assessment and amelia plan of care. Disposition: 12/03/18 18:42 Discharged to Home. Impression: Plantar fascial fibromatosis, Plantar calcaneal spur. - Condition is Stable. - Discharge Instructions: Heel Spur, Plantar Fasciitis. - Prescriptions for Tylenol- Codeine #3 300-30 mg Oral Tablet - take 2 tablets by ORAL route every 6 hours As needed; 20 tablet. Cyclobenzaprine 10 mg Oral Tablet - take 1 tablet by ORAL route every 8 hours As needed; 30 tablet. - Medication Reconciliation Form, Thank You Letter, Antibiotic Education, Prescription Opioid Use form. - Follow up: Emergency Department; When: As needed; Reason: Worsening of condition. Follow up: Private Physician; When: 2 - 3 days; Reason: Recheck today's complaints, Continuance of care, Re-evaluation by your physician. - Problem is new. - Symptoms have improved. Signatures: Dispatcher [employer] EDMS Anthony Caldwell MD MD cha Munoz, Edgar, TRANSFORMER MAKER TRANSFORMER MAKER Dexter Huffman, CHACHO RN Matthew Fishman, TORRIE TRUCK BODY BUILDER pm1 Corrections: (The following items were deleted from the chart) 12/03 18:42 18:42 12/03/2018 18:42 Discharged to Home. Impression: Plantar calcaneal spur; Plantar pm1 fascial fibromatosis. Condition is Stable. Forms are Medication Reconciliation Form, Thank You Letter, Antibiotic Education, Prescription Opioid Use. Follow up: Emergency Department; When: As needed; Reason: Worsening of condition. Follow up: Private Physician; When: 2 - 3 days; Reason: Recheck today's complaints, Continuance of care, Re-evaluation by your physician. Problem is new. Symptoms have improved. pm1 19:07 18:42 12/03/2018 18:42 Discharged to Home. Impression: Plantar fascial em fibromatosisPlantar calcaneal spur. Condition is Stable. Forms are Medication Reconciliation Form, Thank You Letter, Antibiotic Education, Prescription Opioid Use. Follow up: Emergency Department; When: As needed; Reason: Worsening of condition. Follow up: Private Physician; When: 2 - 3 days; Reason: Recheck today's complaints, Continuance of care, Re-evaluation by your physician. Problem is new. Symptoms have improved. pm1
== END 2018-12-03 19:07 | disposition home or self-care (01) ==
LOC: ER 17:13
DX: M72.2 Plantar fascial fibromatosis (principal); M77.31 Calcaneal spur, right foot; I10 Essential (primary) hypertension; Z79.899 Other long term (current) drug therapy; Z86.718 Personal history of other venous thrombosis and embolism
CPT/HCPCS: 99283

== ENCOUNTER 2020-01-14 16:47 | Emergency (ER) | payer OTHER, SELFPAY ==
--- OUTSIDE RECORDS SUMMARY | 2020-01-14 16:49 | XMS REPORT | Summary of Care ---
:1970 Author Organization [facility] - Health Address [address] [place] [id number] Care Team Providers Name Role Phone Pcp, Patient Does Not Have A Primary Care Provider Encounter Details Date Type Department Care Team Description 11/22/2019 Orders Only [facility] Doctor Unassigned, No 301 [facility] Name [place] [id number] [address] [facility] [place] [id number] Allergies No Known Allergiesdocumented as of this encounter (statuses as of 12/12/2019) Medications Medication Sig Dispensed Refills Start Date End Date Status acetaminophen-codeine 0 03/21/2019 Active 300-30 mg tablet traMADOL 50 mg tablet 0 02/27/2019 Active lisinopril 20 mg Take 20 mg by 0 Active tablet mouth daily. diclofenac 75 mg EC Take 1 tablet by 60 tablet 1 05/22/2019 Active tablet mouth 2 (two) times daily with meals. documented as of this encounter (statuses as of 12/12/2019) Active Problems Not on filedocumented as of this encounter (statuses as of 12/12/2019) Social History Tobacco Use Types Packs/Day Years Used Date Never Smoker Smokeless Tobacco: Never Used Alcohol Use Drinks/Week oz/Week Comments No Sex Assigned at Date Recorded Not on file Job Start Date Occupation Industry Not on file Not on file Not on file Travel History Travel Start Travel End No recent travel history available. documented as of this encounter Last Filed Vital Signs Not on filedocumented in this encounter Plan of Treatment Health Maintenance Due Date Last Done Comments DTaP,Tdap,and Td Vaccines ( - 1980 Tdap) PAP SMEAR 1990 Breast Cancer Screening 2009 (MAMMOGRAM) COLONOSCOPY 2019 Zoster Recombinant Vaccine 2019 (SHINGRIX) (1 of 2) INFLUENZA VACCINE (#1) 2019 PNEUMOCOCCAL 0-64 YEARS COMBINED Aged Out No longer eligible based on SERIES patient's age to complete this topic documented as of this encounter Procedures Procedure Name Priority Date/Time Associated Diagnosis Comments AUTHORIZATION FOR RELEASE Routine 11/22/2019 12:01 AM OF PHI AUTOMOTIVE PRODUCT SPECIALIST documented in this encounter Results Not on filedocumented in this encounter Insurance Payer Benefit Plan / Subscriber ID Effective Phone Address Type Group Dates [facility] [id number] 2017-Prese HMO/PPO/ HEALTHCARE PPO nt S DARS DARS DISABILITY [id number] 2018-Pre Agency [employer]ER[employer] sent documented as of this encounter
--- OUTSIDE RECORDS SUMMARY | 2020-01-14 16:49 | XMS REPORT ---
:1970 [facility] Address [address] [place] [address] Care Team Providers Name Role Phone Unavailable [...]
--- OUTSIDE RECORDS SUMMARY | 2020-01-14 16:49 | XMS REPORT | Summary of Care ---
:1970 Author Organization [facility] Address [address] [place] [address] Care Team Providers Name Role Phone Pcp, Patient Does Not Have A Primary Care Provider Reason for Visit Auth/Cert Status Reason Specialty Diagnoses / Referred By Referred To Procedures Contact Contact [facility] [address] [place] [address] [place] [address] Encounter Details Date Type Department Care Team Description 12/22/2019 Emergency [facility] Jeff Rodas, CORE ANALYST [id number] [place] [id number] Allergies No Known Allergiesdocumented as of this encounter (statuses as of 12/22/2019) Medications Medication Sig Dispensed Refills Start Date [...] as of this encounter (statuses as of 12/22/2019) Active Problems Not on filedocumented as of this encounter (statuses as of 12/22/2019) Social History Tobacco Use Types Packs/Day Years [...] Date Last Done Comments DTaP,Tdap,and Td Vaccines (1 - 1980 Tdap) PAP SMEAR 1990 Breast Cancer Screening 2009 (MAMMOGRAM) COLONOSCOPY 2019 Zoster Recombinant Vaccine 2019 (SHINGRIX) (1 of 2) INFLUENZA VACCINE (#1) 2019 PNEUMOCOCCAL 0-64 YEARS COMBINED Aged Out No longer eligible based on SERIES patient's age to complete this topic documented as of this encounter Results Not on filedocumented in this encounter
--- OUTSIDE RECORDS SUMMARY | 2020-01-14 16:49 | XMS REPORT | Summary of Care ---
:1970 Author Organization [facility] - Health Address [address] [place] [address] Care Team Providers Name Role Phone Pcp, Patient Does Not Have A Primary Care Provider Encounter Details Date Type Department Care Team Description 12/22/2019 Orders Only [facility] Doctor Unassigned, No [address] 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
[2020-01-14] MEDS ORDERED: HYDROCODONE/APAP 7.5/325 MG TAB ONE (17:28)
[2020-01-14] MEDS ORDERED: IBUPROFEN 400 MG TAB ONE (17:29)
--- NOTE | 2020-01-14 17:49 | RAD REPORT ---
EXAM DESCRIPTION: RAD - Knee Left 3 View - 01/14/2020 5:30 pm CLINICAL HISTORY: PAIN COMPARISON: No comparisons FINDINGS: Severe osteoarthritis is present involving the medial joint space. Patellofemoral joint al so demonstrate significant degenerative change with large superiorly projecting osteophyte. No fractu re seen. IMPRESSION: Severe osteoarthritis involving the medial joint compartment.
--- NOTE | 2020-01-14 18:14 | RAD REPORT ---
EXAM DESCRIPTION: US - Extremity Venous Uni Ltd - 01/14/2020 6:08 pm CLINICAL HISTORY: Pain;Swelling Leg swelling and edema. COMPARISON: No comparisons FINDINGS: Left lower extremity venous system was interrogated with Doppler technique. Normal flow, c ompressibility and augmentation was noted. There is no DVT present. IMPRESSION: No evidence of left lower extremity deep venous thrombosis.
--- NOTE | 2020-01-14 18:15 | ER ---
Nurse's Notes [facility] Name: Mojgan Hull Age: 49 yrs Sex: Female : 1970 Arrival Date: 01/14/2020 Time: 16:49 Bed 27 Private MD: None, None Diagnosis: Pain in left knee Presentation: 01/14 16:57 Presenting complaint: Left knee pain 9/10 x 2 days. Denies injury. Transition of care: hb patient was not received from another setting of care. Onset of symptoms was January 13, 2020. Risk Assessment: Do you want to hurt yourself or someone else? Patient reports no desire to harm self or others. Initial Sepsis Screen: Does the patient meet any 2 criteria? No. Patient's initial sepsis screen is negative. Does the patient have a suspected source of infection? No. Patient's initial sepsis screen is negative. Care prior to arrival: Medication(s) given: T3 at 1200. 16:57 Method Of Arrival: Wheelchair hb 16:57 Acuity: KALEE 4 hb Triage Assessment: 17:00 General: Appears in no apparent distress. uncomfortable. 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 - Coronavirus screen:: The patient has NOT traveled to [place] in the past 14 days. The patient has NOT had contact with known/suspected case of Coronavirus? Proceed with normal triage procedures. - Social history:: Smoking status: Patient denies any tobacco usage or history of. - Ebola Screening: : No symptoms or risks identified at this time. Screenin:00 Abuse screen: Denies threats or abuse. Denies injuries from another. Nutritional ls4 screening: No deficits noted. 17:00 Tuberculosis screening: No symptoms or risk factors identified. Fall Risk None ls4 identified. Assessment: 17:00 General: Appears in no apparent distress. uncomfortable, Behavior is calm, cooperative. ls4 Pain: Complains of pain in left knee Pain radiates to lateral aspect of left thigh Pain currently is 9 out of 10 on a pain scale. Quality of pain is described as shooting, stabbing, Pain began gradually, Is. Neuro: No deficits noted. Cardiovascular: No deficits noted. Respiratory: No deficits noted. GI: No deficits noted. : No signs and/or symptoms were reported regarding the genitourinary system. Derm: No deficits noted. Musculoskeletal: No deficits noted. Vital Signs: 16:58 BP 142 / 84; Pulse 85; Resp 16; Temp 97.5; Pulse Ox 98% on R/A; Weight 128.37 kg; hb Height 5 ft. 10 in. (177.80 cm); Pain 9/10; 16:58 Body Mass Index 40.61 (128.37 kg, 177.80 cm) hb ED Course: 16:49 Patient arrived in ED. ag5 16:49 None, None is Private Physician. ag5 16:58 Triage completed. hb 16:59 Arm band placed on. hb 17:00 Patient has correct armband on for positive identification. Placed in gown. Bed in low ls4 position. Call light in reach. Side rails up X 1. Verbal reassurance given. 17:00 No provider procedures requiring assistance completed. ls4 17:03 Anthony Davies PA is PHCP. cp 17:03 Anthony Caldwell MD is Attending Physician. cp 17:17 Cami Leonardo, RN is Primary Nurse. ls4 18:00 Patient did not have IV access during this emergency room visit. ls4 18:14 Oscar Crain MD is Referral Physician. cp Administered Medications: 17:35 Drug: Ibuprofen 800 mg Route: PO; ls4 18:00 Follow up: Response: No adverse reaction; Pain is decreased ls4 17:36 Drug: Hydrocodone-Acetaminophen (7.5 mg-325 mg) 1 tabs Route: PO; ls4 18:00 Follow up: Response: No adverse reaction; Pain is decreased ls4 Outcome: 18:14 Discharge ordered by . cp 18:51 Discharged to home ambulatory, with family. ls4 18:51 Condition: good 18:51 Discharge instructions given to patient, family, Instructed on discharge instructions, follow up and referral plans. medication usage, Demonstrated understanding of instructions, follow-up care, medications, Prescriptions given X 1. 19:00 Patient left the ED. ls4 Signatures: Anthony Davies PA PA cp Baxter, Heather RN RN Cami Monroy RN RN ls4 Kaylan Contreras ag5
--- NOTE | 2020-01-14 18:16 | EDPHYS ---
Physician Documentation [facility] Name: Mojgan Hull Age: 49 yrs Sex: Female : 1970 Arrival Date: 01/14/2020 Time: 16:49 Bed 27 Private MD: None, None ED Physician Anthony Caldwell HPI: 01/14 17:10 This 49 yrs old Female presents to ER via Wheelchair with complaints of Knee cp Pain. 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 - Coronavirus screen:: The patient has NOT traveled to [place] in the past 14 days. The patient has NOT had contact with known/suspected case of Coronavirus? Proceed with normal triage procedures. - Social history:: Smoking status: Patient denies any tobacco usage or history of. - Ebola Screening: : No symptoms or risks identified at this time. ROS: 17:15 Constitutional: Negative for body aches, chills, fever, poor PO intake. cp 17:15 Eyes: Negative for injury, pain, redness, and discharge. cp 17:15 ENT: Negative for drainage from ear(s), ear pain, sore throat, difficulty swallowing, difficulty handling secretions. 17:15 Cardiovascular: Negative for chest pain, palpitations. 17:15 Respiratory: Negative for cough, shortness of breath, wheezing. 17:15 Abdomen/GI: Negative for abdominal pain, nausea, vomiting, and diarrhea. 17:15 MS/extremity: Positive for pain, swelling, tenderness, of the left knee, Negative for injury or acute deformity, paresthesias. 17:15 All other systems are negative. Exam: 17:20 Constitutional: The patient appears in no acute distress, alert, awake, non-toxic, well cp developed, well nourished, obese. 17:20 Head/Face: Normocephalic, atraumatic. cp 17:20 Chest/axilla: Inspection: normal. 17:20 Cardiovascular: Rate: normal. 17:20 Respiratory: the patient does not display signs of respiratory distress, Respirations: normal. 17:20 Musculoskeletal/extremity: Extremities: grossly normal except: noted in the left leg: pain, tenderness, Perfusion: the extremity is normally perfused throughout, Sensation intact. Joints: the left knee displays painful range of motion, swelling, tenderness, DVT Exam: pain, that is moderate, of the left leg, swelling, that is mild, of the left leg, tenderness, that is moderate, of the left leg. 17:20 Skin: cellulitis, is not appreciated, no rash present. Vital Signs: 16:58 BP 142 / 84; Pulse 85; Resp 16; Temp 97.5; Pulse Ox 98% on R/A; Weight 128.37 kg; hb Height 5 ft. 10 in. (177.80 cm); Pain 9/10; 16:58 Body Mass Index 40.61 (128.37 kg, 177.80 cm) hb MDM: 17:04 Patient medically screened. cp 17:15 Differential diagnosis: closed fracture, tendonitis, effusion, septic joint. cp 18:14 Data reviewed: vital signs, nurses notes, radiologic studies, plain films, ultrasound, cp and as a result, I will discharge patient. 18:14 Test interpretation: by ED physician or midlevel provider: plain radiologic studies, cp xrays left knee negative for fracture. Counseling: I had a detailed discussion with the patient and/or guardian regarding: the historical points, exam findings, and any diagnostic results supporting the discharge/admit diagnosis, radiology results, the need for outpatient follow up, a orthopedic surgeon, to return to the emergency department if symptoms worsen or persist or if there are any questions or concerns that arise at home. Response to treatment: the patient's symptoms have mildly improved after treatment, and as a result, I will discharge patient. 01/14 17:09 Order name: XRAY Knee LEFT 3 view cp 01/14 17:09 Order name: US Extremity Venous Unilateral Ltd cp 01/14 18:14 Order name: Crutches; Complete Time: 18:50 cp 01/14 18:39 Order name: RAD EDMS 01/14 18:41 Order name: Knee Immobilizer; Complete Time: 18:50 ss Administered Medications: 17:35 Drug: Ibuprofen 800 mg Route: PO; ls4 18:00 Follow up: Response: No adverse reaction; Pain is decreased ls4 17:36 Drug: Hydrocodone-Acetaminophen (7.5 mg-325 mg) 1 tabs Route: PO; ls4 18:00 Follow up: Response: No adverse reaction; Pain is decreased ls4 Disposition: 01/14/20 18:14 Discharged to Home. Impression: Pain in left knee. - Condition is Stable. - Discharge Instructions: Elastic Bandage and RICE, Knee Pain. - Prescriptions for Naprosyn 500 mg Oral Tablet - take 1 tablet by ORAL route 2 times per day take with food; 20 tablet. Tramadol 50 mg Oral Tablet - take 1 tablet by ORAL route every 8 hours as needed; 20 tablet. - Medication Reconciliation Form, Thank You Letter, Antibiotic Education, Prescription Opioid Use form. - Follow up: Oscar Crain MD; When: 2 - 3 days; Reason: Recheck today's complaints. - Problem is new. - Symptoms have improved. Addendum: 01/16/2020 08:39 Co-signature as Attending Physician, Anthony Caldwell MD I agree with the assessment and c muñiz plan of care. Signatures: Dispatcher [employer] EDOH Anthony Caldwell MD MD cha Smirch, Shelby, RN RN ss Anthony Davies PA PA cp Altagracia Gastelum, CHACHO RN Cami Leonardo RN RN ls4 Corrections: (The following items were deleted from the chart) 01/14 18:31 18:14 Luis Enrique wrap-joint ordered. cp ls4 19:00 18:14 01/14/2020 18:14 Discharged to Home. Impression: Pain in left knee. Condition is ls4 Stable. Forms are Medication Reconciliation Form, Thank You Letter, Antibiotic Education, Prescription Opioid Use. Follow up: Oscar Crain; When: 2 - 3 days; Reason: Recheck today's complaints. Problem is new. Symptoms have improved. cp
[2020-01-14 21:52] VITALS: BP 142/84; TEMP 97.5; O2SAT 98
== END 2020-01-14 19:00 | disposition home or self-care (01) ==
LOC: ER 16:47
DX: M25.562 Pain in left knee (principal); I10 Essential (primary) hypertension; Z88.8 Allergy status to other drugs, medicaments and biological substances
CPT/HCPCS: 93971; 99283

== ENCOUNTER 2020-01-23 19:16 | Emergency (ER) | payer SELFPAY ==
--- OUTSIDE RECORDS SUMMARY | 2020-01-23 19:18 | XMS REPORT ---
:1970 [facility] Address [address] [place] [address] Care Team Providers Name Role Phone Unavailable [...]
[2020-01-23] MEDS ORDERED: NA CHLORIDE 0.9% 1,000 ML ONE (20:09)
[2020-01-23] MEDS ORDERED: MECLIZINE HCL 12.5 MG TAB ONE (20:09)
[2020-01-23] MEDS ORDERED: ONDANSETRON 4 MG/2 ML VIAL ONE (20:09)
[2020-01-23 20:24] LABS: Urine Blood NEGATIVE (NEG); Urine Glucose NEGATIVE (NEG); Urine Protein TRACE (NEG); Urine Specific Gravity >1.030 (1.005-1.030); Urine pH 5.5 (5.0-7.0)
--- NOTE | 2020-01-23 20:26 | RAD REPORT ---
EXAM DESCRIPTION: CT - Head Brain Wo Cont - 01/23/2020 8:13 pm CLINICAL HISTORY: Dizziness COMPARISON: None. TECHNIQUE: Computed axial tomography of the head was obtained. IV contrast was not requested. All CT scans are performed using dose optimization technique as appropriate and may include automated exposure control or mA/KV adjustment according to patient size. FINDINGS: An intracranial bleed is not seen . The ventricles are normal in caliber. No extra-axial fluid collection is noted. Fluid within the sinuses/ mastoids is not seen. IMPRESSION: No acute intracranial abnormality is seen. If patient's symptoms persist MRI of the bra in would be recommended.
[2020-01-23 20:43] LABS: Absolute Lymphocytes (CBC) 3.1 K/uL (0.7-4.9); Basophils % 0.6 % (0-1.3); Hematocrit 39.2 % (36.0-45.0); Lymphocytes % 36.4 % (15.3-44.8); MPV 9.8 fL (7.6-11.3); RBC Red Blood Cell Count 4.34 M/uL (3.86-4.86)
[2020-01-23 21:05] LABS: BUN Blood Urea Nitrogen 18 mg/dL (7-18); Bicarbonate 30 mmol/L (21-32); Glucose Level 119 mg/dL (74-106); Magnesium 2.1 mg/dL (1.8-2.4); Potassium 3.6 mmol/L (3.5-5.1); Sodium Level 141 mmol/L (136-145); Troponin (Emerg Dept Use Only) < 0.02 ng/mL (0.0-0.045)
--- NOTE | 2020-01-23 21:57 | ER ---
Nurse's Notes [facility] Name: Mojgan Hull Age: 49 yrs Sex: Female : 1970 Arrival Date: 01/23/2020 Time: 19:21 Bed 7 Private MD: Diagnosis: Vertigo;Dehydration Presentation: 01/23 19:39 Presenting complaint: Patient states: Reports she started having headache and dizziness ea yesterday evening. States " it feels like the room is spinning". Transition of care: patient was not received from another setting of care. Onset of symptoms was January 23, 2020. Risk Assessment: Do you want to hurt yourself or someone else? Patient reports no desire to harm self or others. Initial Sepsis Screen: Does the patient meet any 2 criteria? No. Patient's initial sepsis screen is negative. Does the patient have a suspected source of infection? No. Patient's initial sepsis screen is negative. Care prior to arrival: None. 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 - Coronavirus screen:: The patient has NOT traveled to [place] in the past 14 days. - Social history:: Smoking status: Patient denies any tobacco usage or history of. - Family history:: not pertinent. - Ebola Screening: : No symptoms or risks identified at this time. - Hospitalizations: : No recent hospitalization is reported. Screenin:44 Abuse screen: Denies threats or abuse. Nutritional screening: No deficits noted. ea Tuberculosis screening: No symptoms or risk factors identified. Fall Risk None identified. Assessment: 20:00 General: Appears in no apparent distress. comfortable, Behavior is calm, cooperative, rr5 appropriate for age. 20:00 Pain: Complains of pain in head Pain does not radiate. Pain Quality of pain is rr5 described as aching, Pain began gradually, Is intermittent. Neuro: Level of Consciousness is awake, alert, obeys commands, Oriented to person, place, time, situation, Appropriate for age Reports headache feels like its spinning. Cardiovascular: Capillary refill < 3 seconds Patient's skin is warm and dry. Respiratory: Airway is patent Respiratory effort is even, unlabored, Respiratory pattern is regular, symmetrical. GI: Abdomen is round Reports nausea. : No signs and/or symptoms were reported regarding the genitourinary system. EENT: No signs and/or symptoms were reported regarding the EENT system. Derm: Skin is intact, is healthy with good turgor, Skin temperature is warm. Musculoskeletal: Circulation, motion, and sensation intact. Capillary refill < 3 seconds. 21:10 Reassessment: Patient appears in no apparent distress at this time. Patient is alert, rr5 oriented x 3, equal unlabored respirations, skin warm/dry/pink. awaiting for results. Patient states feeling better. Patient states symptoms have improved. 22:08 Reassessment: Patient appears in no apparent distress at this time. Patient is alert, rr5 oriented x 3, equal unlabored respirations, skin warm/dry/pink. discharge instruction given and explained without complaints made. Patient states feeling better. Patient states symptoms have improved. Vital Signs: 19:41 Pulse 71; Resp 18; Temp 97.6; Pulse Ox 100% ; Weight 127.01 kg; Height 5 ft. 10 in. ea (177.80 cm); 19:44 BP 138 / 84; ea 20:44 BP 135 / 100; Pulse 77; Resp 17; Pulse Ox 98% on R/A; rr5 21:26 BP 137 / 92; Pulse 75; Resp 16; Pulse Ox 99% on R/A; rr5 22:08 BP 121 / 78; Pulse 79; Resp 17; Temp 98.4; Pulse Ox 99% ; rr5 19:41 Body Mass Index 40.18 (127.01 kg, 177.80 cm) ea ED Course: 19:21 Patient arrived in ED. ds1 19:41 Triage completed. ea 19:42 Arm band placed on right wrist. ea 19:49 Gabriel Lomax RN is Primary Nurse. rr5 19:49 Afshin Owusu MD is Attending Physician. rn 20:05 Patient has correct armband on for positive identification. Placed in gown. Bed in low rr5 position. Call light in reach. Side rails up X2. flipping machine operator on. Pulse ox on. NIBP on. 20:05 Door closed. Lights dimmed. Warm blanket given. rr5 20:13 CT Head Brain wo Cont In Process Unspecified. EDMS 20:40 Inserted saline lock: 20 gauge in right antecubital area, using aseptic technique. rr5 Blood collected. 21:56 Van Moreira MD is Referral Physician. rn 22:09 No provider procedures requiring assistance completed. IV discontinued, intact, rr5 bleeding controlled, No redness/swelling at site. Pressure dressing applied. Administered Medications: 20:15 Drug: Meclizine 50 mg Route: PO; rr5 21:15 Follow up: Response: No adverse reaction; Marked relief of symptoms rr5 20:40 Drug: NS 0.9% 1000 ml Route: IV; Rate: 1000 ml; Site: right antecubital; rr5 22:00 Follow up: Response: No adverse reaction; IV Status: Completed infusion; IV Intake: rr5 1000ml 20:40 Drug: Zofran 4 mg Route: IVP; Site: right antecubital; rr5 21:40 Follow up: Response: No adverse reaction; Marked relief of symptoms rr5 Intake: 22:00 IV: 1000ml; Total: 1000ml. rr5 Outcome: 21:57 Discharge ordered by . rn 22:09 Discharged to home ambulatory. rr5 22:09 Condition: stable 22:09 Discharge instructions given to patient, Instructed on discharge instructions, follow up and referral plans. medication usage, Demonstrated understanding of instructions, follow-up care, medications, Prescriptions given X 2. 22:11 Patient left the ED. rr5 Signatures: Dispatcher [facility] Lul[facility] Yang ds1 Afshin Owusu MD MD rn Antunez, Elena, RN RN ea Roque, Raymond, RN RN rr5 Corrections: (The following items were deleted from the chart) 19:42 19:41 Resp 71bpm; Pulse Ox 100%; Temp 96.7F; ea ea 19:44 19:41 Pulse 71bpm; Resp 18bpm; Pulse Ox 100%; Temp 96.7F; 127.01 kg; Height 5 ft. 10 ea in.; BMI: 40.1; ea
--- NOTE | 2020-01-23 21:57 | EDPHYS ---
Physician Documentation [facility] Name: Mojgan Hull Age: 49 yrs Sex: Female : 1970 Arrival Date: 01/23/2020 Time: 19:21 Bed 7 Private MD: ED Physician Afshin Owusu HPI: 01/23 20:04 This 49 yrs old Female presents to ER via Ambulatory with complaints of rn Dizziness. 20:04 The patient presents with sense of spinning. Onset: The symptoms/episode began/occurred rn yesterday. Modifying factors: The symptoms are alleviated by holding head still, lying down, the symptoms are aggravated by movement of head, standing up, changing position. Severity of symptoms: At their worst the symptoms were moderate in the emergency department the symptoms have improved. The patient has experienced similar episodes in the past. The patient has not recently seen a physician. Reports since yesterday feeling of spinning and dizzy, no chest pain/sob/abd pain/vomiting. + diarrhea, non-bloody. Reports has had vertigo in past similar to this. + mild headache. No recent head trauma. . 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 - Coronavirus screen:: The patient has NOT traveled to [place] in the past 14 days. - Social history:: Smoking status: Patient denies any tobacco usage or history of. - Family history:: not pertinent. - Ebola Screening: : No symptoms or risks identified at this time. - Hospitalizations: : No recent hospitalization is reported. ROS: 20:04 Constitutional: Negative for fever, chills, and weight loss, Eyes: Negative for injury, rn pain, redness, and discharge, Neck: Negative for injury, pain, and swelling, Cardiovascular: Negative for chest pain, palpitations, and edema, Respiratory: Negative for shortness of breath, cough, wheezing, and pleuritic chest pain, Abdomen/GI: Negative for abdominal pain, vomiting, and constipation, Back: Negative for injury and pain, : Negative for injury, bleeding, discharge, and swelling, MS/Extremity: Negative for injury and deformity, Skin: Negative for injury, rash, and discoloration, Neuro: Negative for weakness, numbness, tingling, and seizure. Exam: 20:04 Constitutional: This is a well developed, well nourished patient who is awake, alert, rn and in no acute distress. Head/Face: Normocephalic, atraumatic. ENT: MMM Neck: Trachea midline, Supple, full range of motion without nuchal rigidity, or vertebral point tenderness. No Meningismus. Cardiovascular: Regular rate and rhythm. No pulse deficits. Respiratory: Speaking full sentences. No increased work of breathing, no retractions or nasal flaring. MS/ Extremity: Pulses equal, no cyanosis. Neurovascular intact. Full, normal range of motion. Equal circumference. Neuro: Awake and alert, GCS 15, oriented to person, place, time, and situation. Cranial nerves II-XII grossly intact. Motor strength 5/5 in all extremities. Sensory grossly intact. Cerebellar exam normal. No truncal ataxia, able to sit upright without assistance. Able to ambulate to bathroom holding rail. No nystagmus. Vital Signs: 19:41 Pulse 71; Resp 18; Temp 97.6; Pulse Ox 100% ; Weight 127.01 kg; Height 5 ft. 10 in. ea (177.80 cm); 19:44 BP 138 / 84; ea 20:44 BP 135 / 100; Pulse 77; Resp 17; Pulse Ox 98% on R/A; rr5 21:26 BP 137 / 92; Pulse 75; Resp 16; Pulse Ox 99% on R/A; rr5 22:08 BP 121 / 78; Pulse 79; Resp 17; Temp 98.4; Pulse Ox 99% ; rr5 19:41 Body Mass Index 40.18 (127.01 kg, 177.80 cm) ea MDM: 19:49 Patient medically screened. rn 21:55 Differential diagnosis: CVA, hypovolemia, idiopathic dizziness, TIA, vertigo. Data rn reviewed: vital signs, nurses notes, lab test result(s), EKG, radiologic studies, CT scan, and as a result, I will discharge patient. Counseling: I had a detailed discussion with the patient and/or guardian regarding: the historical points, exam findings, and any diagnostic results supporting the discharge/admit diagnosis, lab results, radiology results, the need for outpatient follow up, to return to the emergency department if symptoms worsen or persist or if there are any questions or concerns that arise at home. Response to treatment: the patient's symptoms have markedly improved after treatment, and as a result, I will discharge patient. Special discussion: I discussed with the patient/guardian in detail that at this point there is no indication for admission to the hospital. It is understood, however, that if the symptoms persist or worsen the patient needs to return immediately for re-evaluation. Based on the history and exam findings, there is no indication for further emergent testing or inpatient evaluation. I discussed with the patient/guardian the need to see the neurologist for further evaluation of the symptoms. ED course: Pt markedly improved with fluids and meclizine, has had vertigo before, no abnormal neuro findings suggestive of central vertigo on exam. Will dc home with neuro f/u and meclizine/zofran prn. . 01/23 20:01 Order name: Basic Metabolic Panel; Complete Time: 21:01/23 20:01 Order name: CBC with Diff; Complete Time: :01/23 20:01 Order name: CT Head Brain wo Cont; Complete Time: :01/23 20:01 Order name: Magnesium; Complete Time: :01/23 20:01 Order name: Troponin (emerg Dept Use Only); Complete Time: :01/23 20:22 Order name: Urine Dipstick--Ancillary (enter results); Complete Time: 20: mw2 01/23 20:01 Order name: EKG; Complete Time: 20:01/23 20:01 Order name: Cardiac monitoring; Complete Time: :01/23 20:01 Order name: EKG - Nurse/Tech; Complete Time: :01/23 20:01 Order name: IV Saline Lock; Complete Time: :01/23 20:01 Order name: Labs collected and sent; Complete Time: :01/23 20:01 Order name: NPO; Complete Time: :01/23 20:01 Order name: O2 Per Protocol; Complete Time: 20:24 rn 01/23 20:01 Order name: O2 Sat Monitoring; Complete Time: 20:24 rn 01/23 20:01 Order name: Urine Dipstick-Ancillary (obtain specimen); Complete Time: 20:41 rn Administered Medications: 20:15 Drug: Meclizine 50 mg Route: PO; rr5 21:15 Follow up: Response: No adverse reaction; Marked relief of symptoms rr5 20:40 Drug: NS 0.9% 1000 ml Route: IV; Rate: 1000 ml; Site: right antecubital; rr5 22:00 Follow up: Response: No adverse reaction; IV Status: Completed infusion; IV Intake: rr5 1000ml 20:40 Drug: Zofran 4 mg Route: IVP; Site: right antecubital; rr5 21:40 Follow up: Response: No adverse reaction; Marked relief of symptoms rr5 Disposition: 01/23/20 21:57 Discharged to Home. Impression: Vertigo, Dehydration. - Condition is Stable. - Discharge Instructions: Dehydration, Adult, Vertigo. - Prescriptions for Meclizine 25 mg Oral Tablet - take 1 tablet by ORAL route every 8 hours As needed; 30 tablet. Zofran ODT 4 mg Oral tablet,disintegrating - place 1 tablet by TRANSLINGUAL route every 8 hours As needed; 20 tablet. - Medication Reconciliation Form, Thank You Letter, Antibiotic Education, Prescription Opioid Use form. - Follow up: Van Moreira MD; When: As needed; Reason: Recheck today's complaints, Re-evaluation by your physician. - Problem is new. - Symptoms have improved. Signatures: Dispatcher [employer] EDMS Afshin Owusu MD MD rn Antunez, Elena, RN RN ea Roque, Raymond RN RN rr5 Corrections: (The following items were deleted from the chart) 20:06 20:04 Constitutional: Negative for fever, chills, and weight loss, Eyes: Negative for rn injury, pain, redness, and discharge, Neck: Negative for injury, pain, and swelling, Cardiovascular: Negative for chest pain, palpitations, and edema, Respiratory: Negative for shortness of breath, cough, wheezing, and pleuritic chest pain, Abdomen/GI: Negative for abdominal pain, vomiting, and constipation, MS/Extremity: Negative for injury and deformity, Skin: Negative for injury, rash, and discoloration, Neuro: Negative for weakness, numbness, tingling, and seizure, rn 22:11 21:57 01/23/2020 21:57 Discharged to Home. Impression: Vertigo; Dehydration. Condition rr5 is Stable. Forms are Medication Reconciliation Form, Thank You Letter, Antibiotic Education, Prescription Opioid Use. Follow up: Van Moreira; When: As needed; Reason: Recheck today's complaints, Re-evaluation by your physician. Problem is new. Symptoms have improved. rn
[2020-01-23 22:41] VITALS: O2SAT 99
[2020-01-23 22:42] VITALS: BP 121/78; TEMP 98.4
--- NOTE | 2020-01-24 10:09 | EKG ---
Test Date: 2020-01-23 Test Time: 20:21:46 In House Counsel: RR MEASUREMENT RESULTS: Intervals: Rate: 66 UT: 158 QRSD: 74 QT: 404 QTc: 423 [place]: P: 20 UT: 158 QRS: 39 T: -5 INTERPRETIVE STATEMENTS: Normal sinus rhythm Normal ECG No previous ECG available for comparison Electronically Signed On 01-24-20 10:08:44 COMMUNITY HE[employer] PROGRAM COORDINATOR by Ra Burroughs
== END 2020-01-23 22:11 | disposition home or self-care (01) ==
LOC: ER 19:16
DX: E86.0 Dehydration (principal); I10 Essential (primary) hypertension; Z88.7 Allergy status to serum and vaccine
CPT/HCPCS: 36415; 70450; 80048; 81003; 83735; 84484; 85025; 93005; 96361; 96374; 99284; J2405; J7030

== ENCOUNTER 2022-01-25 19:51 | Emergency (ER) | payer BC, SELFPAY ==
--- OUTSIDE RECORDS SUMMARY | 2022-01-25 19:54 | XMS REPORT | Continuity of Care Document ---
:1970 Author Organization [facility] t Address [address] [place] [address] Care Team Providers Name Role Phone Unavailable Unavailable Unavailable Payers Payer Name Policy Type Policy Number Effective Date Expiration Date S ource Advance Directives Directive Decision Effective Date Termination Date Comments Sour ce Yes N/A [facility] Condition Condition Condition Status Onset Resolution Last Treating Co mments Source Name Details Category Date Date Treatment Clinician Date Hypertensi Problem Active [facility] Headache Problem Active [facility] Elevated Problem Inactiv JUSTIN U blood e S pressure Health reading Allergies, Adverse Reactions, Alerts Allergy Allergy Status Severity Reaction(s) Onset Inactive Treating Comm ents Source Name Type Date Date Clinician No Known DA Active U 2017-11 [facility] Allergie 0-13 [facility] s 00:00: d 00 [facility] Peanuts Allergy Active Unknown 2009-11 [facility] to 0-28 S substanc 00:00: Health e 00 Pneumoco Allergy Active Unknown 2009-11 JUSTIN U ccal to 0-28 S conjugat substanc 00:00: Health e e 00 vaccine Penicill Allergy Active Mild 2005-11 [facility] in to 1-20 S substanc 00:00: Health e 00 Ketorola Allergy Active Mild 2005-11 [facility] c to 1-20 S substanc 00:00: Health e 00 Social History Social Habit Start Date Stop Date Quantity Comments Source Sex Assigned At [birth year] Female [facility] 00:00:00 00:00:00 Smoking Status Start Date Stop Date Source Never smoked tobacco (finding) [facility] [employer] Medications Ordered Filled Start Stop Current Ordering Indication Dosage Frequency Signature Comments Components Source Medication Medication Date Date Medication? Clinician (SIG) Name Name Acetaminoph 2014-0 No 1 Every 4 [facility] en/Codeine 6-19 Hours S Phosphate 23:04: Health (Tylenol 00 #3) 1 Tab TAB Vital Signs Vital Name Observation Time Observation Value Comments Source BP Diastolic 2021-02-16 20:13:00 87 mm[Hg] [facility] BP Systolic 2021-02-16 20:13:00 132 mm[Hg] [facility] Heart Rate 2021-02-16 20:13:00 86 /min [facility] Respiratory rate 2021-02-16 20:13:00 20 /min [facility] [employer] Body Temperature 2021-02-16 20:13:00 97.4 [degF] [facility] [employer] Procedures Procedure Date / Time Performed Performing Clinician [facility] e ECG (electrocardiogram) 2021-02-16 00:00:00 [facility] X-ray of chest, single 2021-02-16 00:00:00 [facility] view Encounters Start End Encounter Admission Attending Care Care Encounter Source Date/Time Date/Time Type Type Clinicians Facility Department ID 2021-02-16 Inpatient RACIEL SCHRADER [id number] [facility] 19:49:00 [id number] S Health 2021-02-16 2021-02-16 Departed [facility] AB07 [id number] [facility] 19:50:00 21:14:00 Emergency [facility] S Room [facility] Results Test Description Test Time Test Comments Results Result Comments Source Automated blood leukocyte count (number/volume) 2021-02-16 2 0:35:00 Test Item Value Reference Range Interpretation Comme nts White Blood Count (test code = 6690-2) 9.6 3.6-11.2 [facility] erythrocytes automated count (number/volume)2021-02-16 20:35:00 Test Item Value Reference Range Interpretation Comments Red Blood Count (test code = 789-8) 4.49 3.63-4.92 [facility] (mass/volume)2021-02-16 20:35:00 Test Item Value Reference Range Interpretation Comments Hemoglobin (test code = 718-7) 13.1 10.9-14.3 [facility] hematocrit (volume fraction)2021-02-16 20:35:00 Test Item Value Reference Range Interpretation Comments Hematocrit (test code = 4544-3) 39.2 31.2-41.9 [facility] mean corpuscular volume (MCV) measurement 2021-02-16 20:35:00 Test Item Value Reference Range Interpretation Comments Mean Corpuscular Volume (test code = 87.4 78-102 787-2) [facility] mean corpuscular hemoglobin (mass per erythrocyte)2021-02-16 20:35:00 Test Item Value Reference Range Interpretation Comments Mean Corpuscular Hemoglobin (test code 29.2 26-34 = 785-6) [facility] mean corpuscular hemoglobin concentration (MCHC) measurement (mass/volume)2021-02-16 20:35:00 Test Item Value Reference Range Interpretation Comments Mean Corpuscular Hemoglobin Concent 33.4 31-35 (test code = 786-4) [facility] erythrocyte distribution width [id number] 20:35:00 Test Item Value Reference Range Interpretation Comments Red Cell Distribution Width (test code 14.4 12.5-14.5 = 788-0) [facility] platelet count (count/volume)2021-02-16 20:35:00 Test Item Value Reference Range Interpretation Comments Platelet Count (test code = 777-3) 266 130-400 [facility] platelet mean volume [id number] 20:35:00 Test Item Value Reference Range Interpretation Comments Mean Platelet Volume (test code = 9.7 7.4-10.4 73965-8) [facility] blood neutrophil count as percentage of total [id number] 20:35:00 Test Item Value Reference Range Interpretation Comments Neutrophils (%) (Auto) (test code = 57.9 43.3-76.6 770-8) [facility] blood lymphocyte count as percentage of total [id number] 20:35:00 Test Item Value Reference Range Interpretation Comments Lymphocytes (%) (Auto) (test code = 32.3 16-43.5 736-9) [facility] blood monocyte count as percentage of total leukocytes 2021-02-16 20:35:00 Test Item Value Reference Range Interpretation Comments Monocytes (%) (Auto) (test code = 7.9 4.5-12.5 5905-5) [facility] blood eosinophil count as percentage of total [id number] 20:35:00 Test Item Value Reference Range Interpretation Comments Eosinophils (%) (Auto) (test code = 1.3 0.6-7.9 713-8) [facility] blood basophil count as percentage of total leukocytes 2021-02-16 20:35:00 Test Item Value Reference Range Interpretation Comments Basophils (%) (Auto) (test code = 0.6 0.2-1.4 706-2) [facility] blood neutrophil count (number/volume)2021-02-16 20:35:00 Test Item Value Reference Range Interpretation Comments Neutrophils # (Auto) (test code = 5.50 1.8-7.8 751-8) [facility] blood lymphocyte count (number/volume)2021-02-16 20:35:00 Test Item Value Reference Range Interpretation Comments Lymphocytes # (Auto) (test code = 3.10 1.0-3.0 731-0) [facility] blood monocyte count (number/volume)2021-02-16 20:35:00 Test Item Value Reference Range Interpretation Comments Monocytes # (Auto) (test code = 742-7) 0.80 0.3-1.0 [facility] blood eosinophil [id number] 20:35:00 Test Item Value Reference Range Interpretation Comments Eosinophils # (Auto) (test code = 0.10 0.0-0.5 711-2) [facility] blood basophil count (number/volume)2021-02-16 20:35:00 Test Item Value Reference Range Interpretation Comments Basophils # (Auto) (test code = 704-7) 0.10 0.0-0.1 [facility] Health[facility]um or plasma sodium measurement (moles/volume)2021-02-16 20:35:00 Test Item Value Reference Range Interpretation Comments Sodium Level (test code = 2951-2) 143 136-145 [facility] or plasma potassium measurement (moles/volume)2021-02-16 20:35:00 Test Item Value Reference Range Interpretation Comments Potassium Level (test code = 2823-3) 3.7 3.5-5.1 [facility] or plasma chloride measurement (moles/volume)2021-02-16 20:35:00 Test Item Value Reference Range Interpretation Comments Chloride Level (test code = 2075-0) 102 101-111 [facility] or plasma total carbon dioxide measurement (moles/volume) 2021-02-16 20:35:00 Test Item Value Reference Range Interpretation Comments Carbon Dioxide Level (test code = 31 -2027-) [facility] or plasma urea nitrogen measurement (mass/volume)2021-02-16 20:35:00 Test Item Value Reference Range Interpretation Comments Blood Urea Nitrogen (test code = 06-21 3094-0) [facility] or plasma creatinine measurement (mass/volume)2021-02-16 20:35:00 Test Item Value Reference Range Interpretation Comments Creatinine (test code = 2160-0) 0.7 0.6-1.2 [facility] HealthGlomerular filtration rate (GFR) estimation/1.73 sq m using creatinine measurement with MDRD equation in black [id number] 20:35:00 Test Item Value Reference Range Interpretation Comments Estimated GFR () (test >60 code = 74879-2) [facility]EGFR non- [id number] 20:35:00 Test Item Value Reference Range Interpretation Comments Estimated GFR (Non- >60 (test code = 66069-9) [facility] or plasma glucose measurement (mass/volume)2021-02-16 20:35:00 Test Item Value Reference Range Interpretation Comments Glucose Level (test code = 2345-7) 115 70-110 [facility] or plasma calcium measurement (mass/volume)2021-02-16 20:35:00 Test Item Value Reference Range Interpretation Comments Calcium Level (test code = 84669-6) 9.5 8.6-10.3 [facility] or plasma total bilirubin measurement (mass/volume) 2021-02-16 20:35:00 Test Item Value Reference Range Interpretation Comments Total Bilirubin (test code = 1975-2) 0.4 0.3-1.0 [facility] or plasma aspartate aminotransferase measurement (enzymatic activity/volume)2021-02-16 20:35:00 Test Item Value Reference Range Interpretation Comments Aspartate Amino Transf (AST/SGOT) (test 18 39 code = 1920-8) [facility] alanine aminotransferase measurement (enzymatic activity/volume)2021-02-16 20:35:00 Test Item Value Reference Range Interpretation Comments Alanine Aminotransferase (ALT/SGPT) 23 14-54 (test code = 1742-6) [facility] protein [facility] (mass/volume)2021-02-16 20:35:00 Test Item Value Reference Range Interpretation Comments Total Protein (test code = 2885-2) 6.8 6.4-8.9 [facility] albumin measurement (mass/volume)2021-02-16 20:35:00 Test Item Value Reference Range Interpretation Comments Albumin (test code = 1751-7) 4.4 3.5-5.7 [facility] alkaline phosphatase measurement (enzymatic activity/volume)2021-02-16 20:35:00 Test Item Value Reference Range Interpretation Comments Alkaline Phosphatase (test code = 109 34-104 6768-6) [facility] troponin I measurement (mass/volume) 2021-02-16 20:35:00 Test Item Value Reference Range Interpretation Comments Troponin I (test code = 19180-8) < 0.03 0.00-0.04 [facility]
--- NOTE | 2022-01-25 21:03 | RAD REPORT ---
EXAM DESCRIPTION: RAD - Ankle Right 3 View - 01/25/2022 8:52 pm CLINICAL HISTORY: Right ankle pain status post injury FINDINGS: No fracture or dislocation is seen.
--- NOTE | 2022-01-25 21:04 | RAD REPORT ---
EXAM DESCRIPTION: RAD - Foot Right 3 View - 01/25/2022 8:52 pm CLINICAL HISTORY: Right foot pain status post injury FINDINGS: No fracture or dislocation is seen
--- NOTE | 2022-01-25 21:05 | EDPHYS ---
Physician Documentation [facility] Name: Mojgan Hull Age: 51 yrs Sex: Female : 1970 Arrival Date: 01/25/2022 Time: 19:57 Bed 10 Private MD: ED Physician Afshin Owusu HPI: 01/25 20:14 This 51 yrs old Female presents to ER via Wheelchair with complaints of right ankle rn injury. 20:14 The patient presents with decreased range of motion, an injury, pain. The complaints rn affect the right ankle. Onset: The symptoms/episode began/occurred just prior to arrival. Context: The problem was sustained outdoors, resulted from a mis-step by the patient, on a curb, The mechanism of injury involved inversion of the affected ankle. The patient is unable to bear weight. The patient is not able to ambulate, must have assistance. Associated signs and symptoms: Pertinent positives: swelling, Pertinent negatives: fever, weakness. Modifying factors: The symptoms are alleviated by nothing, the symptoms are aggravated by weight bearing, movement. Severity of symptoms: At their worst the symptoms were moderate, in the emergency department the symptoms are unchanged. The patient has not experienced similar symptoms in the past. The patient has not recently seen a physician. Reports mis-step off curb 30 min prior to arrival, isolated injury. Reports pain with weight-bearing, no other injury, reports pain to lateral malleolus and proximal foot. . Historical: - Allergies: 20:10 Pneumovax 23; tk1 - Home Meds: 20:10 lisinopril 20 mg Oral tab 1 tab once daily [Active]; Victoza 2-Kenyon 0.6 mg/0.1 mL (18 tk1 mg/3 mL) subcutaneous pnij 1.2 1.2mg/0.2ml once daily for type 2 diabetes mellitus [Active]; - PMHx: 20:10 blood clot in arm; Hypertension; tk1 - Immunization history:: Adult Immunizations up to date. - Social history:: Smoking status: Patient/guardian denies using tobacco, but has a distant history of tobacco abuse. - Family history:: not pertinent. - Hospitalizations: : No recent hospitalization is reported. ROS: 20:14 Constitutional: Negative for fever, chills, and weight loss, Neck: Negative for injury, rn pain, and swelling, Back: Negative for injury and pain, MS/Extremity: + injury and pain to right ankle/foot Skin: Negative for open wound Neuro: Negative for headache, weakness, numbness, tingling, and seizure. Exam: 20:14 Constitutional: This is a well developed, well nourished patient who is awake, alert, rn and in no acute distress. MS/ Extremity: Pulses equal, no cyanosis. + tenderness with mild swelling right lateral malleolus and lateral/proximal right foot. No open wounds. No tenderness of tibia or medial malleolus. Vital Signs: 20:05 BP 155 / 95 RA Sitting (auto/reg); Pulse 84 MON; Resp 20 S; Temp 96.6(T); Pulse Ox 100% tk1 on R/A; Weight 131.54 kg; Height 5 ft. 10 in. (177.80 cm); Pain 7/10; 20:05 Body Mass Index 41.61 (131.54 kg, 177.80 cm) tk1 MDM: 20:10 Patient medically screened. rn 21:04 Differential diagnosis: fracture, sprain. Data reviewed: vital signs, nurses notes, rn radiologic studies, plain films, and as a result, I will discharge patient. Test interpretation: by ED physician or midlevel provider: plain radiologic studies, Xray right ankle and foot negative for acute fracture or dislocation.. Counseling: I had a detailed discussion with the patient and/or guardian regarding: the historical points, exam findings, and any diagnostic results supporting the discharge/admit diagnosis, radiology results, the need for outpatient follow up, to return to the emergency department if symptoms worsen or persist or if there are any questions or concerns that arise at home. Response to treatment: the patient's symptoms have mildly improved after treatment, and as a result, I will discharge patient. Special discussion: I discussed with the patient/guardian in detail that at this point there is no indication for admission to the hospital. It is understood, however, that if the symptoms persist or worsen the patient needs to return immediately for re-evaluation. 01/25 20:10 Order name: XRAY Ankle RIGHT 3 view; Complete Time: 21: rn 01/25 20:10 Order name: XRAY Foot RIGHT 3 View; Complete Time: : rn 01/25 21:07 Order name: Crutches; Complete Time: 21:23 rn Administered Medications: No medications were administered Disposition Summary: 01/25/22 21:05 Discharge Ordered Location: Home rn Problem: new rn Symptoms: have improved rn Condition: Stable rn Diagnosis - Sprain of unspecified ligament of right ankle, initial encounter rn Followup: rn - With: Private Physician - When: As needed - Reason: Recheck today's complaints, Re-evaluation by your physician Discharge Instructions: - Discharge Summary Sheet rn - Ankle Sprain rn Forms: - Medication Reconciliation Form rn - Thank You Letter rn - Antibiotic skeins 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
--- NOTE | 2022-01-25 21:05 | ER ---
Nurse's Notes [facility] Name: Mojgan Hull Age: 51 yrs Sex: Female : 1970 Arrival Date: 01/25/2022 Time: 19:57 Bed 10 Private MD: Diagnosis: Sprain of unspecified ligament of right ankle, initial encounter Presentation: 01/25 20:05 Chief complaint: Patient states: Patient states, stepped of curb and she heard her tk1 ankle pop. Coronavirus screen: Vaccine status:. Ebola Screen: Patient negative for fever greater than or equal to 101.5 degrees Fahrenheit, and additional compatible Ebola Virus Disease symptoms Patient denies exposure to infectious person. Patient denies travel to an Ebola-affected area in the 21 days before illness onset. Initial Sepsis Screen: Does the patient meet any 2 criteria? No. Patient's initial sepsis screen is negative. Does the patient have a suspected source of infection? No. Patient's initial sepsis screen is negative. Risk Assessment: Do you want to hurt yourself or someone else? Patient reports no desire to harm self or others. Onset of symptoms was January 25, 2022 at 19:30. 20:05 Method Of Arrival: Wheelchair tk1 20:05 Acuity: KALEE 4 tk1 20:05 Coronavirus screen: Vaccine status: Patient reports receiving the 1st dose of the Covid tk1 vaccine. Date June 05, 2021 Siddharth and Siddharth vaccine. Triage Assessment: 20:10 General: Appears uncomfortable, obese, well groomed, well developed, well nourished, tk1 Behavior is calm, cooperative, appropriate for age. Pain: Complains of pain in right ankle Pain does not radiate. Pain currently is 7 out of 10 on a pain scale. Quality of pain is described as sharp, Pain began 30 min ago. Is continuous, Alleviated by nothing. Cardiovascular: Capillary refill < 3 seconds in bilateral fingers toes Clubbing of nail beds is absent JVD is absent Patient's skin is warm and dry. Pulses are all present. are 3+ in right dorsalis pedis artery, left dorsalis pedis artery, bilateral radial, brachial, femoral, popliteal, posterior tibial and and dorsalis pedis arteries. Respiratory: No deficits noted. Airway is patent Trachea midline Respiratory effort is even, unlabored. Historical: - Allergies: 20:10 Pneumovax 23; tk1 - Home Meds: 20:10 lisinopril 20 mg Oral tab 1 tab once daily [Active]; Victoza 2-Kenyon 0.6 mg/0.1 mL (18 tk1 mg/3 mL) subcutaneous pnij 1.2 1.2mg/0.2ml once daily for type 2 diabetes mellitus [Active]; - PMHx: 20:10 blood clot in arm; Hypertension; tk1 - Immunization history:: Adult Immunizations up to date. - Social history:: Smoking status: Patient/guardian denies using tobacco, but has a distant history of tobacco abuse. - Family history:: not pertinent. - Hospitalizations: : No recent hospitalization is reported. Screenin:24 Abuse screen: Denies threats or abuse. Nutritional screening: No deficits noted. lr4 Tuberculosis screening: No symptoms or risk factors identified. Fall Risk None identified. Assessment: 20:19 General: Appears in no apparent distress. comfortable, Behavior is calm, cooperative. lr4 Pain: Complains of pain in right ankle Pain currently is 7 out of 10 on a pain scale. Quality of pain is described as squeezing, throbbing, Pain began suddenly, 30 min ago. Neuro: No deficits noted. Cardiovascular: No deficits noted. Respiratory: No deficits noted. Musculoskeletal: Reports weakness in right ankle. Injury Description: twisted ankle. 21:23 Reassessment: Patient states feeling better. Pt departed ed via wheelchair with all lr4 personal effects, pt given crutches as well, pt stable in nad. General:. Vital Signs: 20:05 BP 155 / 95 RA Sitting (auto/reg); Pulse 84 MON; Resp 20 S; Temp 96.6(T); Pulse Ox 100% tk1 on R/A; Weight 131.54 kg; Height 5 ft. 10 in. (177.80 cm); Pain 7/10; 20:05 Body Mass Index 41.61 (131.54 kg, 177.80 cm) tk1 ED Course: 19:57 Patient arrived in ED. ja2 20:08 Triage completed. tk1 20:09 Afshin Owusu MD is Attending Physician. rn 20:19 Andra Aceves RN is Primary Nurse. lr4 20:52 XRAY Ankle RIGHT 3 view In Process Unspecified. EDMS 20:52 XRAY Foot RIGHT 3 View In Process Unspecified. EDMS 21:26 Arm band placed on right wrist. lr4 21:26 Patient has correct armband on for positive identification. Bed in low position. Adult lr4 w/ patient. Door closed. Warm blanket given. 21:26 No provider procedures requiring assistance completed. Patient did not have IV access lr4 during this emergency room visit. Administered Medications: No medications were administered Outcome: 21:05 Discharge ordered by . rn 21:26 Condition: stable lr4 21:26 Discharged to home via wheelchair. lr4 21:26 Discharge instructions given to patient. lr4 21:27 Patient left the ED. lr4 Signatures: Dispatcher [employer] EDMS Afshin Owusu MD MD rn Alexander, Jessica ja2 Kirby, Tammie tk1 Andra Aceves, RN RN lr4
[2022-01-25 21:41] VITALS: BP 155/95; TEMP 96.6; O2SAT 100
== END 2022-01-25 21:27 | disposition home or self-care (01) ==
LOC: ER 19:51
DX: S93.401A Sprain of unspecified ligament of right ankle, initial encounter (principal); X58.XXXA Exposure to other specified factors, initial encounter; Y92.89 Other specified places as the place of occurrence of the external cause; E11.9 Type 2 diabetes mellitus without complications; I10 Essential (primary) hypertension; Z79.4 Long term (current) use of insulin; Z88.7 Allergy status to serum and vaccine
CPT/HCPCS: 99283

== ENCOUNTER 2022-02-01 21:28 | Emergency (ER) | payer BC ==
--- OUTSIDE RECORDS SUMMARY | 2022-02-01 21:32 | XMS REPORT | Continuity of Care Document ---
:1970 Author Organization [facility] t Address [address] [place] [address] Care Team Providers Name Role Phone Unavailable [...] Allergie 0-13 [facility] 00:[facility]: [facility] Peanuts Allergy Active Unknown 2009-11 [facility] to [...] Source Sex Assigned At [birth year] Female [facility] 00:00:00 00:00:00 Smoking Status Start Date Stop Date Source Never smoked tobacco (finding) [employer] Medications Ordered Filled Start Stop Current Ordering Indication Dosage Frequency Signature Comments Components Source Medication Medication Date Date Medication? Clinician (SIG) Name Name Acetaminoph No 1 Every 4 [facility] en/Codeine 6-19 Hours S Phosphate 23:04: Health (Tylenol 00 #3) 1 Tab TAB Vital Signs Vital Name Observation Time Observation Value Comments Source BP Diastolic 2021-02-16 20:13:00 87 mm[Hg] [facility] BP Systolic 2021-02-16 20:13:00 132 mm[Hg] [facility] Heart Rate 2021-02-16 20:13:00 86 /min [facility] Respiratory rate 2021-02-16 20:13:00 20 /min [facility] Body Temperature 2021-02-16 20:13:00 97.4 [degF] [facility] Procedures Procedure Date / Time Performed Performing Clinician [facility] e ECG (electrocardiogram) 2021-02-16 00:00:00 [facility] X-ray of chest, single 2021-02-16 00:00:00 [facility] view Encounters Start End Encounter Admission Attending Care Care Encounter Source Date/Time Date/Time Type Type Clinicians Facility Department ID 2021-02-16 Inpatient RACIEL SCHRADER [id number] [facility] 19:49:00 [id number] S Health 2021-02-16 2021-02-16 Departed [facility] AB07 [id number] [facility] 19:50:00 21:14:00 Emergency [place] [address] S Room [facility] Results Test Description Test Time Test Comments Results Result Comments Source Automated blood leukocyte count (number/volume) 2021-02-16 2 0:35:00 Test Item Value Reference Range Interpretation Comme nts White Blood Count (test code = 6690-2) 9.6 3.6-11.2 [facility] (number/volume)2021-02-16 20:35:00 Test Item Value Reference Range Interpretation Comments Red Blood Count (test code = 789-8) 4.49 3.63-4.92 [facility] (mass/volume)2021-02-16 20:35:00 Test Item Value Reference Range Interpretation Comments Hemoglobin (test code = 718-7) 13.1 10.9-14.3 [facility] hematocrit (volume fraction)2021-02-16 20:35:00 Test Item [...] = 786-4) [facility] width [id number] 20:35:00 Test Item Value Reference Range Interpretation Comments Red Cell Distribution Width (test code 14.4 12.5-14.5 = 788-0) [facility] platelet count (count/volume)2021-02-16 20:35:00 Test Item Value Reference Range Interpretation Comments Platelet Count (test code = 777-3) 266 130-400 [facility] platelet mean volume [id number] 20:35:00 Test Item Value Reference Range Interpretation Comments Mean Platelet Volume (test code = 9.7 7.4-10.4 73888-0) [facility] neutrophil count as percentage of total [id number] 20:35:00 Test Item Value Reference Range Interpretation Comments Neutrophils (%) (Auto) (test code = 57.9 43.3-76.6 770-8) [facility] lymphocyte count as percentage of total [id number] 20:35:00 Test Item Value Reference Range Interpretation Comments Lymphocytes (%) (Auto) (test code = 32.3 16-43.5 736-9) [facility] monocyte count as percentage of total leukocytes 2021-02-16 20:35:00 Test Item Value Reference Range Interpretation Comments Monocytes (%) (Auto) (test code = 7.9 4.5-12.5 5905-5) [facility] blood eosinophil count as percentage of total [id number] 20:35:00 Test Item Value Reference Range Interpretation [...] 742-7) 0.80 0.3-1.0 [facility] blood eosinophil [id number] 20:35:00 Test Item Value Reference Range Interpretation [...] Carbon Dioxide Level (test code = 31 21-31 2027-) [facility]um or plasma urea nitrogen measurement (mass/volume)2021-02-16 20:35:00 Test Item Value Reference Range Interpretation Comments Blood Urea Nitrogen (test code = 12 - 3094-0) [facility] or plasma creatinine measurement (mass/volume)2021-02-16 20:35:00 Test Item Value Reference Range Interpretation Comments Creatinine (test code = 2160-0) 0.7 0.6-1.2 [facility] HealthGlomerular filtration rate (GFR) estimation/1.73 sq m using creatinine measurement with MDRD equation in black [id number] 20:35:00 Test Item Value Reference Range Interpretation Comments Estimated GFR () (test >60 code = 42467-1) [facility]EGFR non- [id number] 20:35:00 Test Item Value Reference Range Interpretation Comments Estimated GFR (Non- >60 (test code = 77909-5) [facility] or plasma glucose measurement (mass/volume)2021-02-16 20:35:00 Test Item Value Reference Range Interpretation Comments Glucose Level (test code = 2345-7) 115 70-110 [facility] or plasma calcium measurement (mass/volume)2021-02-16 20:35:00 Test Item Value Reference Range Interpretation Comments Calcium Level (test code = 58029-5) 9.5 8.6-10.3 [facility] or plasma total bilirubin measurement (mass/volume) 2021-02-16 20:35:00 Test Item Value Reference Range Interpretation Comments Total Bilirubin (test code = 1975-2) 0.4 0.3-1.0 [facility] or plasma aspartate aminotransferase measurement (enzymatic activity/volume)2021-02-16 20:35:00 Test Item Value Reference Range Interpretation Comments Aspartate Amino Transf (AST/SGOT) (test 18 1239 code = 1920-8) [facility] alanine aminotransferase measurement (enzymatic activity/volume)2021-02-16 20:35:00 Test Item Value Reference Range Interpretation Comments Alanine Aminotransferase (ALT/SGPT) 23 14-54 (test code = 1742-6) [facility] protein measurement (mass/volume)2021-02-16 20:35:00 Test Item Value Reference Range Interpretation Comments Total Protein (test code = 2885-2) 6.8 6.4-8.9 [facility] albumin measurement (mass/volume)2021-02-16 20:35:00 Test Item Value Reference Range Interpretation Comments Albumin (test code = 1751-7) 4.4 3.5-5.7 [facility] alkaline phosphatase measurement (enzymatic activity/volume)2021-02-16 20:35:00 Test Item Value Reference Range Interpretation Comments Alkaline Phosphatase (test code = 109 34-104 6768-6) [facility] cardiac troponin I measurement (mass/volume) 2021-02-16 20:35:00 Test Item Value Reference Range Interpretation Comments Troponin I (test code = 01632-8) < 0.03 0.00-0.04 [facility]
[2022-02-01] MEDS ORDERED: HYDROCODONE/APAP 10/325 TAB ONE (23:53)
--- NOTE | 2022-02-02 02:23 | EDPHYS ---
Physician Documentation [facility] Name: Mojgan Hull Age: 51 yrs Sex: Female : 1970 Arrival Date: 02/01/2022 Time: 21:32 Bed 16 Private MD: ED Physician Wesley Schwartz HPI: 02/01 23:51 This 51 yrs old Female presents to ER via Wheelchair with complaints of Ankle Injury. kdr 23:51 The patient presents with decreased range of motion, a deformity, an injury, pain, that kdr is acute. The complaints affect the right ankle. Onset: The symptoms/episode began/occurred Patient was seen here on the for a twisted ankle. At that time plain films were done and found to be negative. Patient continued to have pain and presents back this evening saying she has had no relief. She denies any new injury. Context: The problem was sustained at home, resulted from a mis-step by the patient, The mechanism of injury is unknown. The patient is unable to bear weight. The patient is not able to ambulate. Associated signs and symptoms: The patient has no apparent associated signs or symptoms. Modifying factors: The symptoms are alleviated by nothing, the symptoms are aggravated by weight bearing, movement. Severity of symptoms: At their worst the symptoms were moderate, severe, incapacitating, in the emergency department the symptoms are unchanged. The patient has not experienced similar symptoms in the past. The patient has been recently seen at the [facility] Emergency Department, last week. Historical: - Allergies: 21:42 Pneumovax 23; ab2 - Home Meds: 21:42 lisinopril 20 mg Oral tab 1 tab once daily [Active]; ab2 - PMHx: 21:42 blood clot in arm; Hypertension; ab2 - PSHx: 21:42 Cholecystectomy; Hysterectomy; Tonsillectomy; Right arm repair; ab2 - Immunization history:: Adult Immunizations up to date. - Social history:: Smoking status: Patient denies any tobacco usage or history of. ROS: 23:51 Constitutional: Negative for fever, chills, and weight loss. kdr 23:51 MS/extremity: Positive for injury or acute deformity, pain, swelling, tenderness, of the right ankle and lateral aspect of right foot. Exam: 23:54 Constitutional: This is a well developed, well nourished patient who is awake, alert, kdr and in no acute distress. 23:54 Musculoskeletal/extremity: Extremities: grossly normal except: noted in the right ankle and lateral aspect of right foot: decreased ROM, pain, swelling, tenderness, ROM: limited active range of motion, limited passive range of motion, Right ankle. Vital Signs: 21:39 BP 132 / 83; Pulse 89; Resp 18; Temp 98.1(TE); Pulse Ox 98% on R/A; Weight 131.09 kg; ab2 Height 5 ft. 9 in. (175.26 cm); Pain 8/10; 22:40 BP 127 / 75 RA Supine (auto/reg); Pulse 77 MON; Resp 18 S; Temp 98(O); Pulse Ox 98% on tk1 R/A; Pain 09/06; 02/02 00:14 BP 139 / 82 RA Supine (auto/reg); Pulse 82 MON; Resp 18 S; Temp 97.9(O); Pulse Ox 98% tk1 on R/A; 01:30 BP 120 / 72 RA Supine (auto/reg); Pulse 70 MON; Resp 18 S; Temp 97.9(O); Pulse Ox 100% tk1 on R/A; Pain 4/10; 02/01 21:39 Body Mass Index 42.68 (131.09 kg, 175.26 cm) ab2 MDM: 02/01 23:54 Data reviewed: vital signs, nurses notes, radiologic studies. Counseling: I had a kdr detailed discussion with the patient and/or guardian regarding: the historical points, exam findings, and any diagnostic results supporting the discharge/admit diagnosis, radiology results, the need for outpatient follow up. 02/02 02:22 Patient medically screened. kdr 02/01 21:58 Order name: Ankle Right Wo Con EDMS 02/01 23:56 Order name: Luis Enrique wrap-joint; Complete Time: 00:13 kdr 02/01 23:56 Order name: Crutches; Complete Time: 00:13 kdr Administered Medications: 02/01 23:54 Drug: Ambia (HYDROcodone-acetaminophen) 10 mg-325 mg 1 tabs Route: PO; tk1 02/02 02:38 Follow up: Response: Pain is decreased tk1 Disposition Summary: 02/02/22 02:22 Discharge Ordered Location: Home kdr Problem: new kdr Symptoms: have improved kdr Condition: Stable kdr Diagnosis - Cuboid fracture of the right foot kdr Followup: kdr - With: Private Physician - When: 2 - 3 days - Reason: If symptoms return, Further diagnostic work-up, Recheck today's complaints, Continuance of care, Re-evaluation by your physician Discharge Instructions: - Discharge Summary Sheet kdr - Metatarsal Fracture kdr - Foot Pain kdr Forms: - Medication Reconciliation Form kdr - Thank You Letter kdr Prescriptions: - Tylenol-Codeine #3 300 mg-30 mg Oral - take 1 tablet by ORAL route every 4-6 hours As needed; 16 tablet; Refills: 0, kdr Product Selection Permitted Signatures: Dispatcher [employer] Wesley Laureano MD MD kdr Azalia Quinn tk1 Ladarius Gray ab2 Corrections: (The following items were deleted from the chart) 02/01 21:44 21:42 PSHx: None; ab2 ab2 21:44 21:42 PSHx: Pins and Plates Right arm; ab2 ab2
--- NOTE | 2022-02-02 02:23 | ER ---
Nurse's Notes [facility] Name: Mojgan Hull Age: 51 yrs Sex: Female : 1970 Arrival Date: 02/01/2022 Time: 21:32 Bed 16 Private MD: Diagnosis: Cuboid fracture of the right foot Presentation: 02/01 21:39 Chief complaint: Patient states: "Im having the same problem I had Tuesday. My right ab2 ankle is really swollen and I cant put any pressure on it at all. When I try to move it it spasms and locks up.". Coronavirus screen: Vaccine status: Patient reports receiving the 2nd dose of the covid vaccine. Client denies travel out of the [place] in the last 14 days. At this time, the client does not indicate any symptoms associated with coronavirus-19. Ebola Screen: Patient negative for fever greater than or equal to 101.5 degrees Fahrenheit, and additional compatible Ebola Virus Disease symptoms Patient denies exposure to infectious person. Patient denies travel to an Ebola-affected area in the 21 days before illness onset. No symptoms or risks identified at this time. Initial Sepsis Screen: Does the patient meet any 2 criteria? No. Patient's initial sepsis screen is negative. Does the patient have a suspected source of infection? No. Patient's initial sepsis screen is negative. Risk Assessment: Do you want to hurt yourself or someone else? Patient reports no desire to harm self or others. Onset of symptoms is unknown. 21:39 Method Of Arrival: Wheelchair ab2 21:39 Acuity: KALEE 4 ab2 Triage Assessment: 21:44 General: Appears in no apparent distress. comfortable, Behavior is calm, cooperative, ab2 appropriate for age. Pain: Complains of pain in right ankle Pain currently is 8 out of 10 on a pain scale. Musculoskeletal: Reports pain in right ankle. Historical: - Allergies: 21:42 Pneumovax 23; ab2 - Home Meds: 21:42 lisinopril 20 mg Oral tab 1 tab once daily [Active]; ab2 - PMHx: 21:42 blood clot in arm; Hypertension; ab2 - PSHx: 21:42 Cholecystectomy; Hysterectomy; Tonsillectomy; Right arm repair; ab2 - Immunization history:: Adult Immunizations up to date. - Social history:: Smoking status: Patient denies any tobacco usage or history of. Screenin:40 Abuse screen: Denies threats or abuse. Denies injuries from another. Nutritional tk1 screening: No deficits noted. Tuberculosis screening: No symptoms or risk factors identified. Fall Risk None identified. Assessment: 22:40 General: Appears uncomfortable, well groomed, well developed, well nourished, Behavior tk1 is calm, cooperative, appropriate for age. Pain: Complains of pain in right leg and right ankle Pain does not radiate. Pain currently is 10 out of 10 on a pain scale. Quality of pain is described as sharp, Pain began one week. Neuro: Level of Consciousness is awake, alert, obeys commands, Oriented to person, place, time, [employer] are equal bilaterally Weakness in right ankle. Cardiovascular: No deficits noted. Capillary refill < 3 seconds is brisk in bilateral fingers toes Clubbing of nail beds is absent. Respiratory: Airway is patent Trachea midline Respiratory effort is even, unlabored. GI: No deficits noted. No signs and/or symptoms were reported involving the gastrointestinal system. : No deficits noted. No signs and/or symptoms were reported regarding the genitourinary system. EENT: No deficits noted. No signs and/or symptoms were reported regarding the EENT system. Derm: No deficits noted. No signs and/or symptoms reported regarding the dermatologic system. Musculoskeletal: Swelling present in right ankle. 02/02 00:06 Reassessment: Luis Enrique wrap to right ankle. Patient tolerated well. tk1 01:00 Reassessment: No changes from previously documented assessment. Patient and/or family tk1 updated on plan of care and expected duration. Pain level reassessed. Patient is alert, oriented x 3, equal unlabored respirations, skin warm/dry/pink. Patient ambulated to restroom with crutches. Steady with use. Tolerated well. 02:34 Reassessment: D/C per MD order. Discharge/Prescription instructions given to patient tk1 and SO. Verbalized underestanding. Vital Signs: 02/01 21:39 BP 132 / 83; Pulse 89; Resp 18; Temp 98.1(TE); Pulse Ox 98% on R/A; Weight 131.09 kg; ab2 Height 5 ft. 9 in. (175.26 cm); Pain 8/10; 22:40 BP 127 / 75 RA Supine (auto/reg); Pulse 77 MON; Resp 18 S; Temp 98(O); Pulse Ox 98% on tk1 R/A; Pain 09/06; 02/02 00:14 BP 139 / 82 RA Supine (auto/reg); Pulse 82 MON; Resp 18 S; Temp 97.9(O); Pulse Ox 98% tk1 on R/A; 01:30 BP 120 / 72 RA Supine (auto/reg); Pulse 70 MON; Resp 18 S; Temp 97.9(O); Pulse Ox 100% tk1 on R/A; Pain 410; 02/01 21:39 Body Mass Index 42.68 (131.09 kg, 175.26 cm) ab2 ED Course: 02/01 21:32 Patient arrived in ED. es 21:42 Triage completed. ab2 21:44 Arm band placed on right wrist. ab2 21:50 Wesley Schwartz MD is Attending Physician. kdr 22:20 Ankle Right Wo Con In Process Unspecified. EDMS 22:38 Azalia Quinn is Primary Nurse. tk1 22:40 Patient has correct armband on for positive identification. Bed in low position. Call tk1 light in reach. Side rails up X2. Adult w/ patient. Warm blanket given. 22:40 No provider procedures requiring assistance completed. Patient did not have IV access tk1 during this emergency room visit. Administered Medications: 23:54 Drug: [place] (HYDROcodone-acetaminophen) 10 mg-325 mg 1 tabs Route: PO; tk1 02/02 02:38 Follow up: Response: Pain is decreased tk1 Outcome: 01:30 Discharged to home via wheelchair, with family. tk1 01:30 Condition: stable 01:30 Discharge instructions given to patient, family, Instructed on discharge instructions, follow up and referral plans. medication usage, crutch walking, Demonstrated understanding of instructions, follow-up care, medications, crutch walking, Prescriptions given X 1. 02:22 Discharge ordered by . kdr 02:39 Patient left the ED. tk1 Signatures: Dispatcher [employer] EDAL Wesley Schwartz MD MD kdr Salyer, Edna es Kirby, Tammie tk1 Ladarius Gray ab2 Corrections: (The following items were deleted from the chart) 02/01 21:42 PSHx: None; ab2 ab2 21:42 PSHx: Pins and Plates Right arm; ab2 ab2
[2022-02-02 02:46] VITALS: TEMP 97.9
[2022-02-02 02:48] VITALS: BP 120/72; O2SAT 100
--- NOTE | 2022-02-02 09:51 | RAD REPORT ---
EXAM DESCRIPTION: CT RIGHT ANKLE WITHOUT CONTRAST CLINICAL HISTORY: Pain. COMPARISON: None. TECHNIQUE: Axial 2.[address] imaging of the right ankle performed. Reformatted coronal and sagittal im ages obtained. No contrast utilized. Automated exposure control, adjustment of the mA and/or kV according to patient size, or use of itera tive reconstruction was performed. FINDINGS: No acute fracture within the distal right tibia or fibula. Intact talus and calcaneus. No fracture within the navicular and cuneiforms. There is a sclerotic density along the proximal margin of the cuboid which could indicate an impaction fracture. There is no fracture within the imaged meta tarsals. There is a small tibiotalar joint effusion. There is moderate generalized edema. No subcutan eous emphysema. IMPRESSION: 1. Possible proximal cuboid impaction fracture. 2. Small tibiotalar joint effusion. 3. Moderate generalized edema. Electronically signed by: Stephanie Glass DO 02/01/2022 10:48 PM [employer] Due to temporary technical issues with the PACS/Fluency reporting system, reports are being signed by the in house radiologists without review as a courtesy to insure prompt reporting. The interpreting radiologist is fully responsible for the content of the report.
== END 2022-02-02 02:39 | disposition home or self-care (01) ==
LOC: ER 21:28
DX: S92.211A Displaced fracture of cuboid bone of right foot, initial encounter for closed fracture (principal); I10 Essential (primary) hypertension; Z88.7 Allergy status to serum and vaccine
CPT/HCPCS: 73700; 99284

== ENCOUNTER 2022-11-10 16:46 | Emergency (ER) | payer BC, OTHER ==
--- OUTSIDE RECORDS SUMMARY | 2022-11-10 17:11 | XMS REPORT | Continuity of Care Document ---
:1970 Author Organization [facility] t Address [address] [place] [address] Care Team Providers Name Role Phone PCP, NO Primary Care Physician Unavailable TERRANCE RODRIGUEZ Attending Clinician Unavailable Payers Payer Name Policy Type Policy Number Effective Date Expiration Date S ource Problems Condition Condition Condition Status Onset Resolution [...] substanc 00:00: Health e e 00 vaccine Ketorola Allergy Active Mild 2005-11 [facility] c to 1-20 S substanc 00:00: Health e 00 Penicill Allergy Active Mild 2005-11 [facility] in to 1-20 S substanc 00:00: Health e 00 Social History Social Habit Start Date Stop Date Quantity Comments Source History SDOH [facility] Drinks History SDAZ [facility] Tobacco use and 2019-01-14 2019-01-14 Smokeless tobacco [facility] exposure 00:00:00 00:00:00 non-user Hospital Alcohol intake 2019-01-14 2019-01-14 Current [facility] 00:00:00 00:00:00 non-drinker of Hospital alcohol (finding) History SDOH 2019-01-14 2019-01-14 1 [facility] Alcohol Frequency 00:00:00 00:00:00 Hospita l Sex Assigned At [birth year] [facility] 00:00:00 00:00:00 Hospital Smoking Status Start Date Stop Date Source Never smoked tobacco (finding) [facility] Medications Ordered Filled Start Stop Current Ordering Indication Dosage Frequency Signature Comments Components Source Medication Medication Date Date Medication? Clinician (SIG) Name Name lisinopril Yes 20mg QD Take 20 mg M ethodi (PRINIVIL,Z 2-[address] ESTRIL) 20 10:16: daily. Hospi ta mg tablet 02 l Acetaminoph No 1 Every 4 [facility] en/Codeine 6-19 Hours S Phosphate 23:04: Health (Tylenol 00 #3) 1 Tab TAB Vital Signs Vital Name Observation Time Observation Value Comments Source BP Diastolic 2021-02-16 20:13:00 87 mm[Hg] [facility] BP Systolic 2021-02-16 20:13:00 132 mm[Hg] [facility] Heart Rate 2021-02-16 20:13:00 86 /min [facility] Respiratory rate 2021-02-16 20:13:00 20 /min [facility] Body Temperature 2021-02-16 20:13:00 97.4 [degF] [facility] Procedures Procedure Date / Time Performed Performing Clinician Heath naya ECG (electrocardiogram) 2021-02-16 00:00:00 [facility] X-ray of chest, single 2021-02-16 00:00:00 [facility] Plan of Care Planned Activity Planned Date Details Comments Source Future Scheduled 2022-10-03 HEPATITIS B VACCINES [facility] Test 10:59:06 (1 of 3 - 3-dose series) [code = HEPATITIS B VACCINES (1 of 3 - 3-dose series)] Future Scheduled 2022-10-03 COVID-19 VACCINE (#1) [facility] Test 10:59:06 [code = COVID-19 VACCINE (#1)] Future Scheduled 2022-10-03 [facility] Test 10:59:06 malignant neoplasm of cervix (procedure) [code = 822176546] Future Scheduled 2022-10-03 BREAST CANCER [facility] Test 10:59:06 SCREENING [code = BREAST CANCER SCREENING] Future Scheduled 2022-10-03 COLONOSCOPY SCREENING [facility] Test 10:59:06 [code = COLONOSCOPY SCREENING] Future Scheduled 2022-10-03 SHINGLES VACCINES (1 [facility] Test 10:59:06 of 2) [code = SHINGLES VACCINES (1 of 2)] Future Scheduled 2022-10-03 INFLUENZA VACCINE [facility] Test 10:59:06 [code = INFLUENZA VACCINE] Encounters Start End Encounter Admission Attending Care Care Encounter Source Date/Time Date/Time Type Type Clinicians Facility Department ID 2022-06-15 Inpatient RACIEL BONDS JUSTIN [id number] [facility] 11:00:00 TERRANCE [id number] [facility] 2021-02-16 Inpatient JUSTIN RACIEL [id number] [facility] 19:49:00 [id number] [facility] 2021-02-16 2021-02-16 Departed [place] [id number] [facility] 19:50:00 21:14:00 Emergency [place] [address] S Room [facility] Results Test Description Test Time Test Comments Results Result Comments Source Automated blood leukocyte count (number/volume) 2021-02-16 2 0:35:00 Test Item Value Reference Range Interpretation Comme nts White Blood Count (test code = 6690-2) 9.6 3.6-11.2 [facility] count (number/volume)2021-02-16 20:35:00 Test Item Value Reference Range Interpretation Comments Red Blood Count (test code = 789-8) 4.49 3.63-4.92 [facility] measurement (mass/volume)2021-02-16 20:35:00 Test Item Value Reference Range Interpretation Comments Hemoglobin (test code = 718-7) 13.1 10.9-14.3 [facility] hematocrit (volume fraction)2021-02-16 20:35:00 Test [...] = 786-4) [facility] erythrocyte distribution width [id number] 20:35:00 Test Item Value Reference Range Interpretation Comments Red Cell Distribution Width (test code 14.4 12.5-14.5 = 788-0) [facility] platelet count (count/volume)2021-02-16 20:35:00 Test Item Value Reference Range Interpretation Comments Platelet Count (test code = 777-3) 266 130-400 [facility] platelet mean volume [id number] 20:35:00 Test Item Value Reference Range Interpretation Comments Mean Platelet Volume (test code = 9.7 7.4-10.4 30074-3) [facility] neutrophil count as percentage of total [id number] 20:35:00 Test Item Value Reference Range Interpretation Comments Neutrophils (%) (Auto) (test code = 57.9 43.3-76.6 770-8) [facility] lymphocyte count as percentage of total [id number] 20:35:00 Test Item Value Reference Range Interpretation Comments Lymphocytes (%) (Auto) (test code = 32.3 16-43.5 736-9) [facility] blood monocyte count as percentage of total leukocytes 2021-02-16 20:35:00 Test Item Value Reference Range Interpretation Comments Monocytes (%) (Auto) (test code = 7.9 4.5-12.5 5905-5) [facility] blood eosinophil count as percentage of total [id number] 20:35:00 Test Item Value Reference Range Interpretation [...] (Auto) (test code = 3.10 1.0-3.0 731-0) [facility]ated blood monocyte count (number/volume)2021-02-16 20:35:00 Test Item Value Reference Range Interpretation Comments Monocytes # (Auto) (test code = 742-7) 0.80 0.3-1.0 [facility]ated blood eosinophil [id number] 20:35:00 Test Item Value Reference Range Interpretation [...] Interpretation Comments Chloride Level (test code = 5-0) 102 101-111 [facility]um or plasma total carbon dioxide measurement (moles/volume) 2021-02-16 20:35:00 Test Item Value Reference Range Interpretation Comments Carbon Dioxide Level (test code = 31 21-8-9) [facility] or plasma urea nitrogen measurement (mass/volume)2021-02-16 20:35:00 Test Item Value Reference Range Interpretation Comments Blood Urea Nitrogen (test code = 06-21 3094-0) [facility] or plasma creatinine measurement (mass/volume)2021-02-16 20:35:00 Test Item Value Reference Range Interpretation Comments Creatinine (test code = 2160-0) 0.7 0.6-1.2 [facility] HealthGlomerular filtration rate (GFR) estimation/1.73 sq m using creatinine measurement with MDRD equation in black [id number] 20:35:00 Test Item Value Reference Range Interpretation Comments Estimated GFR () (test >60 code = 33245-6) [facility]EGFR non- [id number] 20:35:00 Test Item Value Reference Range Interpretation Comments Estimated GFR (Non- >60 (test code = 72228-1) [facility] or plasma glucose measurement (mass/volume)2021-02-16 20:35:00 Test Item Value Reference Range Interpretation Comments Glucose Level (test code = 2345-7) 115 70-110 [facility] or plasma calcium measurement (mass/volume)2021-02-16 20:35:00 Test Item Value Reference Range Interpretation Comments Calcium Level (test code = 86127-6) 9.5 8.6-10.3 [facility] or plasma total bilirubin measurement (mass/volume) 2021-02-16 20:35:00 Test Item Value Reference Range Interpretation Comments Total Bilirubin (test code = 1975-2) 0.4 0.3-1.0 [facility] or plasma aspartate aminotransferase measurement (enzymatic activity/volume)2021-02-16 20:35:00 Test Item Value Reference Range Interpretation Comments Aspartate Amino Transf (AST/SGOT) (test code = 1920-8) [facility] or plasma alanine aminotransferase measurement (enzymatic activity/volume)2021-02-16 20:35:00 Test Item Value Reference Range Interpretation Comments Alanine Aminotransferase (ALT/SGPT) 23 14-54 (test code = 1742-6) [facility] or plasma protein measurement (mass/volume)2021-02-16 20:35:00 Test Item Value Reference Range Interpretation Comments Total Protein (test code = 2885-2) 6.8 6.4-8.9 [facility] or plasma albumin measurement (mass/volume)2021-02-16 20:35:00 Test Item Value Reference Range Interpretation Comments Albumin (test code = 1751-7) 4.4 3.5-5.7 [facility] or plasma alkaline phosphatase measurement (enzymatic activity/volume)2021-02-16 20:35:00 Test Item Value Reference Range Interpretation Comments Alkaline Phosphatase (test code = 109 34-104 6768-6) [facility] cardiac troponin I measurement (mass/volume) 2021-02-16 20:35:00 Test Item Value Reference Range Interpretation Comments Troponin I (test code = 24393-2) < 0.03 0.00-0.04 [facility]
[2022-11-10] MEDS ORDERED: ONDANSETRON 4 MG/2 ML VIAL ONE (17:33)
[2022-11-10] MEDS ORDERED: MORPHINE 4 MG/ML SYR ONE (17:33)
[2022-11-10] MEDS ORDERED: NA CHLORIDE 0.9% 1,000 ML ONE (17:34)
[2022-11-10] MEDS ORDERED: NA CHLORIDE 0.9% 500 ML ONE (17:34)
[2022-11-10 17:54] LABS: Urine Blood Trace-intact (Negative); Urine Glucose Negative (Negative); Urine Protein Negative (Negative); Urine Specific Gravity >=1.030 (1.005-1.030)
[2022-11-10 18:02] LABS: Absolute Lymphocytes (CBC) 2.2 K/uL (0.7-4.9); Hematocrit 37.8 % (36.0-45.0); MCV 87.9 fL (80-100); MPV 9.6 fL (7.6-11.3)
[2022-11-10 18:04] LABS: Protime INR 1.09
[2022-11-10 18:08] LABS: Urine Bacteria <20 /HPF (<20); Urine Crystals Unidentified Few /HPF (None Seen); Urine Mucus 1+ /HPF (None Seen); Urine RBC <5 /HPF (None Seen)
[2022-11-10] MEDS ORDERED: CIPROFLOXACIN 400mg IV 400 MG/200 ML BAG IV ONE (18:10)
[2022-11-10] MEDS ORDERED: NA CHLORIDE 0.9% 0 ML IV ONE (18:10)
[2022-11-10] MEDS ORDERED: CEFTRIAXONE 2000 MG/VIAL ONE (18:10)
[2022-11-10] MEDS ORDERED: METRONIDAZOLE 500mg IVPB 500 MG/100 ML BAG IV ONE (18:11)
[2022-11-10 18:27] LABS: Albumin 3.4 g/dL (3.4-5.0); Bilirubin Direct 0.1 mg/dL (0-0.2); Bilirubin Total 0.4 mg/dL (0.2-1.0); Potassium 3.5 mmol/L (3.5-5.1); Protein, Total 7.1 g/dL (6.4-8.2); Troponin High Sensitivity 10.7 pg/mL (<58.9)
--- NOTE | 2022-11-10 19:21 | RAD REPORT ---
EXAM DESCRIPTION: CT - Abdomen Pelvis W Contrast - 11/10/2022 7:07 pm CLINICAL HISTORY: Abdominal pain COMPARISON: 2018 TECHNIQUE: Computed axial tomography of the abdomen pelvis was obtained. 100 cc Isovue-300 was admin istered intravenously. Oral contrast was not requested which limits evaluation of bowel and appendix All CT scans are performed using dose optimization technique as appropriate and may include automated exposure control or mA/KV adjustment according to patient size. FINDINGS: The liver, spleen, pancreas, adrenal and kidneys appear unremarkable. Diverticula stem from the colon. Mild to moderate stranding adjacent to the sigmoid. Cholecystectomy. Hysterectomy. No adnexal mass. Spondylolysis L5. Small umbilical hernia. Diastases rectus muscle 7.5 centimeters IMPRESSION: Mild to moderate sigmoid diverticulitis
--- NOTE | 2022-11-10 19:21 | RAD REPORT ---
EXAM DESCRIPTION: Marie Single View11/10/2022 6:00 pm CLINICAL HISTORY: Abdominal pain COMPARISON: none FINDINGS: The lungs appear clear of acute infiltrate. The heart is normal size IMPRESSION: No acute abnormalities displayed
--- NOTE | 2022-11-10 19:27 | EDPHYS ---
Physician Documentation [facility] Name: Jerald Hull Age: 52 yrs Sex: Female : 1970 Arrival Date: 11/10/2022 Time: 16:47 Bed 25 Private MD: ED Physician Anthony Caldwell HPI: 11/10 17:41 This 52 yrs old Female presents to ER via Ambulatory with complaints of amelia Abdominal Pain. 17:41 The patient presents with abdominal pain in the lower abdomen, in the left lower amelia quadrant, abdominal distention in the upper abdomen, in the lower abdomen. Onset: The symptoms/episode began/occurred today. The symptoms do not radiate. Associated signs and symptoms: none. The symptoms are described as crampy. Modifying factors: The symptoms are alleviated by nothing, the symptoms are aggravated by movement, touching the area. Severity of pain: At its worst the pain was mild moderate in the emergency department the pain is unchanged. The patient has experienced similar episodes in the past, multiple times. 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 - Social history:: Smoking status: Patient denies any tobacco usage or history of. - Family history:: not pertinent. ROS: 17:41 Constitutional: Negative for fever, chills, and weight loss, Eyes: Negative for injury, amelia pain, redness, and discharge, ENT: Negative for injury, pain, and discharge, Neck: Negative for injury, pain, and swelling, Cardiovascular: Negative for chest pain, palpitations, and edema, Respiratory: Negative for shortness of breath, cough, wheezing, and pleuritic chest pain, Back: Negative for injury and pain, : Negative for injury, bleeding, discharge, and swelling, MS/Extremity: Negative for injury and deformity, Skin: Negative for injury, rash, and discoloration, Neuro: Negative for headache, weakness, numbness, tingling, and seizure, Psych: Negative for depression, anxiety, suicide ideation, homicidal ideation, and hallucinations, Allergy/Immunology: Negative for hives, rash, and allergies, Endocrine: Negative for neck swelling, polydipsia, polyuria, polyphagia, and marked weight changes, Hematologic/Lymphatic: Negative for swollen nodes, abnormal bleeding, and unusual bruising. 17:41 Abdomen/GI: Positive for abdominal pain, of the left lower quadrant. Exam: 17:41 Constitutional: This is a well developed, well nourished patient who is awake, alert, amelia and in no acute distress. Head/Face: Normocephalic, atraumatic. Eyes: Pupils equal round and reactive to light, extra-ocular motions intact. Lids and lashes normal. Conjunctiva and sclera are non-icteric and not injected. Cornea within normal limits. Periorbital areas with no swelling, redness, or edema. ENT: Nares patent. No nasal discharge, no septal abnormalities noted. Tympanic membranes are normal and external auditory canals are clear. Oropharynx with no redness, swelling, or masses, exudates, or evidence of obstruction, uvula midline. Mucous membranes moist. Neck: Trachea midline, no thyromegaly or masses palpated, and no cervical lymphadenopathy. Supple, full range of motion without nuchal rigidity, or vertebral point tenderness. No Meningismus. Chest/axilla: Normal chest wall appearance and motion. Nontender with no deformity. No lesions are appreciated. Cardiovascular: Regular rate and rhythm with a normal S1 and S2. No gallops, murmurs, or rubs. Normal PMI, no JVD. No pulse deficits. Respiratory: Lungs have equal breath sounds bilaterally, clear to auscultation and percussion. No rales, rhonchi or wheezes noted. No increased work of breathing, no retractions or nasal flaring. Back: No spinal tenderness. No costovertebral tenderness. Full range of motion. Skin: Warm, dry with normal turgor. Normal color with no rashes, no lesions, and no evidence of cellulitis. MS/ Extremity: Pulses equal, no cyanosis. Neurovascular intact. Full, normal range of motion. Neuro: Awake and alert, GCS 15, oriented to person, place, time, and situation. Cranial nerves II-XII grossly intact. Motor strength 5/5 in all extremities. Sensory grossly intact. Cerebellar exam normal. Normal gait. Psych: Awake, alert, with orientation to person, place and time. Behavior, mood, and affect are within normal limits. 17:41 Abdomen/GI: Inspection: distension, that is mild, Bowel sounds: active, Palpation: mild abdominal tenderness, moderate abdominal tenderness, in the left lower quadrant, Liver: no appreciated palpable abnormalities, Hernia: not appreciated. 18:23 ECG was reviewed by the Attending Physician. [facility] Vital Signs: 17:19 BP 159 / 96; Pulse 103; Resp 18; Temp 98.7; Pulse Ox 99% ; Weight 132.9 kg; Height 5 jh5 ft. 10 in. (177.80 cm); Pain 10/10; 18:00 BP 112 / 85; Pulse 88; Resp 18; Pulse Ox 99% on R/A; em6 19:00 BP 112 / 92; Pulse 82; Resp 18; Pulse Ox 99% ; em6 20:00 BP 116 / 86; Pulse 86; Resp 18; Pulse Ox 99% on R/A; em6 17:19 Body Mass Index 42.04 (132.90 kg, 177.80 cm) [facility] MDM: 16:48 Patient medically screened. [facility] 17:43 Differential diagnosis: bowel obstruction, diverticulitis, non-specific abd pain, amelia pancreatitis, Peptic Ulcer Disease, Pyelonephritis, Ureterolithiasis, urinary tract infection. Data reviewed: vital signs, nurses notes, lab test result(s), radiologic studies, CT scan. Data interpreted: secured entrance monitor: rate is 103 beats/min, rhythm is regular, Pulse oximetry: on room air is 99 %. Counseling: I had a detailed discussion with the patient and/or guardian regarding: the historical points, exam findings, and any diagnostic results supporting the discharge/admit diagnosis, lab results, radiology results, the need for outpatient follow up, for definitive care, a family practitioner, a general surgeon. 11/10 16:50 Order name: Basic Metabolic Panel; Complete Time: 18:40 [facility] 11/10 16:50 Order name: CBC with Diff; Complete Time: 18:40 [facility] 11/10 16:50 Order name: LFT's; Complete Time: 18:40 [facility] 11/10 16:50 Order name: Magnesium; Complete Time: 18:40 [facility] 11/10 16:50 Order name: NT PRO-BNP; Complete Time: 18:40 amelia 11/10 16:50 Order name: PT-INR; Complete Time: 18:40 [facility] 11/10 16:50 Order name: Troponin HS; Complete Time: 18:40 [facility] 11/10 16:50 Order name: XRAY Chest (1 view); Complete Time: 19:25 [facility] 11/10 16:50 Order name: Lipase; Complete Time: 18:40 [facility] 11/10 16:50 Order name: CT Abd/Pelvis - IV Contrast Only; Complete Time: 19:25 [facility] 11/10 16:50 Order name: Urine Microscopic Only; Complete Time: 18:40 [facility] 11/10 17:55 Order name: Urine Dipstick-Ancillary; Complete Time: 18:40 [facility] 11/10 16:50 Order name: EKG; Complete Time: 16:51 [facility] 11/10 16:50 Order name: Cardiac monitoring; Complete Time: 18:06 [facility] 11/10 16:50 Order name: EKG - Nurse/Tech; Complete Time: 18:06 [facility] 11/10 16:50 Order name: IV Saline Lock; Complete Time: 18:06 [facility] 11/10 16:50 Order name: Labs collected and sent; Complete Time: 18:06 [facility] 11/10 16:50 Order name: O2 Per Protocol; Complete Time: 18:06 [facility] 11/10 16:50 Order name: O2 Sat Monitoring; Complete Time: 18:06 [facility] 11/10 16:50 Order name: Urine Dipstick-Ancillary (obtain specimen); Complete Time: 18:06 [facility] EC:23 Rate is 82 beats/min. Rhythm is regular. QRS Rhome is Normal. MA interval is normal. QRS amelia interval is normal. QT interval is normal. No Q waves. T waves are Normal. Clinical impression: Normal ECG and No evidence of ischemia. Interpreted by me. Reviewed by me. Administered Medications: 17:50 Drug: NS 0.9% 500 ml Route: IV; Rate: bolus; Site: right antecubital; em6 18:39 Follow up: Response: No adverse reaction; IV Status: Completed infusion; IV Intake: em6 500ml 18:00 Drug: NS 0.9% 1000 ml Route: IV; Rate: 125 ml/hr; Site: right antecubital; em6 20:24 Follow up: Response: No adverse reaction; IV Status: Completed infusion; IV Intake: em6 250ml 18:05 Not Given (Patient Refused): Zofran (Ondansetron) 4 mg IVP once; over 2 minutes em6 18:05 Not Given (Patient Refused): morphine 2 mg IVP once over 4 mins em6 18:23 Drug: Rocephin (cefTRIAXone) 2 grams Route: IV; Rate: per protocol; Site: right em6 antecubital; 18:39 Follow up: Response: No adverse reaction em6 19:00 Follow up: Response: No adverse reaction; IV Status: Completed infusion; IV Intake: 38bjzf0 18:23 Drug: Cipro (ciprofloxacin) 400 mg Volume: 200 ml; Route: IVPB; Infused Over: 60 mins; em6 Site: right antecubital; 20:00 Follow up: Response: No adverse reaction; IV Status: Completed infusion; IV Intake: em6 200ml 20:08 Drug: Flagyl (metroNIDAZOLE) 500 mg Volume: 100 ml; Route: IVPB; Rate: 200 ml/hr; em6 Infused Over: 30 mins; Site: right antecubital; 20:32 Follow up: Response: No adverse reaction; IV Status: Completed infusion; IV Intake: em6 100ml Disposition Summary: 11/10/22 19:26 Discharge Ordered Location: Home amelia Problem: new amelia Symptoms: have improved amelia Condition: Stable amelia Diagnosis - Abdominal pain, unspecified - left lower amelia - Obesity, unspecified amelia - Diverticulitis of large intestine without perforation or abscess without bleeding - amelia mild to moderate - Elevated white blood cell count amelia Followup: amelia - With: Private Physician - When: 2 - 3 days - Reason: Recheck today's complaints, Continuance of care, Re-evaluation by your physician Followup: amelia - With: - When: 2 - 3 days - Reason: Recheck today's complaints, Re-evaluation by your physician Discharge Instructions: - Discharge Summary Sheet amelia - Abdominal Pain, Adult amelia - High-Fiber Diet amelia - Diverticulitis amelia - Obesity, Adult amelia - Diverticulitis, [id number] amelia Forms: - Medication Reconciliation Form amelia - Thank You Letter amelia - Antibiotic Education amelia - Prescription Opioid Use amelia Prescriptions: - Colace 100 mg Oral Tablet - take 1 tablet by ORAL route every 12 hours; 14 tablet; Refills: 0, Product amelia Selection Permitted - Flagyl 500 mg Oral Tablet - take 1 tablet by ORAL route every 6 hours for 10 days; 40 tablet; Refills: 0, amelia Product Selection Permitted - Cipro 500 mg Oral Tablet - take 1 tablet by ORAL route every 12 hours for 10 days; 20 tablet; Refills: 0, [facility] Product Selection Permitted - dicyclomine 20 mg Oral Tablet - take 1 tablet by ORAL route 4 times per day; 28 tablet; Refills: 0, Product [facility] Selection Permitted Signatures: Dispatcher [employer] Anthony Rojas MD MD cha Mickail, Joel, PA PA jmm Rees, Jessica, RN RN jh5 Carolyn Jaime RN RN em6
--- NOTE | 2022-11-10 19:27 | ER ---
Nurse's Notes [facility] Name: Jerald Hull Age: 52 yrs Sex: Female : 1970 Arrival Date: 11/10/2022 Time: 16:47 Bed 25 Private MD: Diagnosis: Abdominal pain, unspecified-left lower ;Obesity, unspecified;Diverticulitis of large intestine without perforation or abscess without bleeding-mild to moderate;Elevated white blood cell count Presentation: 11/10 17:19 Chief complaint: Patient states: i have diverticulitis real bad and i think i am having [facility] a flarrre up or something; i am in so much pain, just very tender on my lower abdomen and just double over in pain. Coronavirus screen: Vaccine status: Patient reports receiving the 2nd dose of the covid vaccine. Ebola Screen: Patient negative for fever greater than or equal to 101.5 degrees Fahrenheit, and additional compatible Ebola Virus Disease symptoms Patient denies exposure to infectious person. Patient denies travel to an Ebola-affected area in the 21 days before illness onset. Initial Sepsis Screen: Does the patient meet any 2 criteria? No. Patient's initial sepsis screen is negative. Does the patient have a suspected source of infection? No. Patient's initial sepsis screen is negative. Risk Assessment: Do you want to hurt yourself or someone else? Patient reports no desire to harm self or others. 17:19 Method Of Arrival: Ambulatory [facility] 17:19 Acuity: KALEE 3 [facility] 18:38 Onset of symptoms was November 10, 2022. em6 Triage Assessment: 17:20 General: Appears uncomfortable, obese, Behavior is calm, cooperative, appropriate for [facility] age. Pain: Complains of pain in abdomen. GI: Reports lower abdominal pain. 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 - Social history:: Smoking status: Patient denies any tobacco usage or history of. - Family history:: not pertinent. Screenin:[address] [facility] ED Fall Risk Assessment (Adult) History of falling in the last 3 months, em6 including since admission No falls in past 3 months (0 pts) Confusion or Disorientation No (0 pts) Intoxicated or Sedated No (0 pts) Impaired Gait No (0 pts) Mobility Assist Device Used No (0 pt) Altered Elimination No (0 pt) Score/Fall Risk Level 0 - 2 = Low Risk Oriented to surroundings, Maintained a safe environment, Educated pt \T\ family on fall prevention, incl call for assistance when getting out of bed, Assessed \T\ reinforced patient's understanding of fall precautions, Hourly rounding (assess needs \T\ fall precautionary measures) done. Abuse screen: Denies threats or abuse. Nutritional screening: No deficits noted. Tuberculosis screening: No symptoms or risk factors identified. Fall Risk Total [place] Fall Scale indicates No Risk (0-24 pts). Assessment: 17:30 General: Appears in no apparent distress. Behavior is cooperative. Pain: Denies pain. em6 Neuro: Level of Consciousness is awake, alert, obeys commands, Oriented to person, place, time, situation. Cardiovascular: Patient's skin is warm and dry. Respiratory: Airway is patent Respiratory effort is even, unlabored, Respiratory pattern is regular, symmetrical. GI: Abdomen is non-distended, Bowel sounds present X 4 quads. Abd is soft and non tender X 4 quads. Reports nausea, vomiting. : No signs and/or symptoms were reported regarding the genitourinary system. EENT: No signs and/or symptoms were reported regarding the EENT system. Derm: No signs and/or symptoms reported regarding the dermatologic system. Musculoskeletal: Circulation, motion, and sensation intact. Range of motion: intact in all extremities. 18:30 Reassessment: Patient appears in no apparent distress at this time. No changes from em6 previously documented assessment. Patient and/or family updated on plan of care and expected duration. Pain level reassessed. Patient is alert, oriented x 3, equal unlabored respirations, skin warm/dry/pink. 19:27 Reassessment: Patient appears in no apparent distress at this time. No changes from em6 previously documented assessment. Patient and/or family updated on plan of care and expected duration. Pain level reassessed. Patient is alert, oriented x 3, equal unlabored respirations, skin warm/dry/pink. waiting for antibiotics to finish. 20:34 Reassessment: Patient appears in no apparent distress at this time. No changes from em6 previously documented assessment. Patient and/or family updated on plan of care and expected duration. Pain level reassessed. Patient is alert, oriented x 3, equal unlabored respirations, skin warm/dry/pink. Vital Signs: 17:19 BP 159 / 96; Pulse 103; Resp 18; Temp 98.7; Pulse Ox 99% ; Weight 132.9 kg; Height 5 5 ft. 10 in. (177.80 cm); Pain 10/10; 18:00 BP 112 / 85; Pulse 88; Resp 18; Pulse Ox 99% on R/A; em6 19:00 BP 112 / 92; Pulse 82; Resp 18; Pulse Ox 99% ; em6 20:00 BP 116 / 86; Pulse 86; Resp 18; Pulse Ox 99% on R/A; em6 17:19 Body Mass Index 42.04 (132.90 kg, 177.80 cm) [facility] ED Course: 16:47 Patient arrived in ED. as 16:48 Anthony Caldwell MD is Attending Physician. amelia 17:20 Triage completed. [facility] 17:20 Arm band placed on left wrist. [facility] 17:28 Carolyn Jaime, RN is Primary Nurse. em6 17:30 Bed in low position. Call light in reach. Side rails up X 1. Warm blanket given. em6 17:50 Inserted saline lock: 22 gauge in right antecubital area, using aseptic technique. em6 Blood collected. 18:02 XRAY Chest (1 view) In Process Unspecified. EDMS 19:09 CT Abd/Pelvis - IV Contrast Only In Process Unspecified. EDMS 19:25 Abdirahman Felix MD is Referral Physician. maelia 20:32 No provider procedures requiring assistance completed. IV discontinued, intact, em6 bleeding controlled, No redness/swelling at site. Pressure dressing applied. Administered Medications: 17:50 Drug: NS 0.9% 500 ml Route: IV; Rate: bolus; Site: right antecubital; em6 18:39 Follow up: Response: No adverse reaction; IV Status: Completed infusion; IV Intake: em6 500ml 18:00 Drug: NS 0.9% 1000 ml Route: IV; Rate: 125 ml/hr; Site: right antecubital; em6 20:24 Follow up: Response: No adverse reaction; IV Status: Completed infusion; IV Intake: em6 250ml 18:05 Not Given (Patient Refused): Zofran (Ondansetron) 4 mg IVP once; over 2 minutes em6 18:05 Not Given (Patient Refused): morphine 2 mg IVP once over 4 mins em6 18:23 Drug: Rocephin (cefTRIAXone) 2 grams Route: IV; Rate: per protocol; Site: right em6 antecubital; 18:39 Follow up: Response: No adverse reaction em6 19:00 Follow up: Response: No adverse reaction; IV Status: Completed infusion; IV Intake: [id number] 18:23 Drug: Cipro (ciprofloxacin) 400 mg Volume: 200 ml; Route: IVPB; Infused Over: 60 mins; em6 Site: right antecubital; 20:00 Follow up: Response: No adverse reaction; IV Status: Completed infusion; IV Intake: em6 200ml 20:08 Drug: Flagyl (metroNIDAZOLE) 500 mg Volume: 100 ml; Route: IVPB; Rate: 200 ml/hr; em6 Infused Over: 30 mins; Site: right antecubital; 20:32 Follow up: Response: No adverse reaction; IV Status: Completed infusion; IV Intake: em6 100ml Medication: 20:33 VIS not applicable for this client. em6 Intake: 18:39 IV: 500ml; Total: 500ml. em6 19:00 IV: 10ml; Total: 510ml. em6 20:00 IV: 200ml; Total: 710ml. em6 20:24 IV: 250ml; Total: 960ml. em6 20:32 IV: 100ml; Total: 1060ml. em6 Outcome: 19:26 Discharge ordered by MD. cisneros 20:32 Discharged to home ambulatory. em6 20:32 Condition: stable 20:32 Discharge instructions given to patient, Instructed on discharge instructions, follow up and referral plans. medication usage, Demonstrated understanding of instructions, follow-up care, medications, Prescriptions given X 4. 20:34 Patient left the ED. em6 Signatures: Dispatcher [employer] EDMS Anthony Caldwell MD MD cha Martinez, Amelia as Rees, Jessica, RN RN [facility] Carolyn Jaime RN RN em6 Corrections: (The following items were deleted from the chart) 20:26 18:23 Response: No adverse reaction; IV Status: Completed infusion; IV Intake: 200ml em6em6
[2022-11-10 20:39] VITALS: TEMP 98.7; O2SAT 99
[2022-11-10 20:42] VITALS: BP 116/86
--- NOTE | 2022-11-11 08:03 | EKG ---
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
== END 2022-11-10 20:34 | disposition home or self-care (01) ==
LOC: ER 16:46
DX: K57.32 Diverticulitis of large intestine without perforation or abscess without bleeding (principal); D72.829 Elevated white blood cell count, unspecified; E66.9 Obesity, unspecified; Z68.41 Body mass index [BMI] 40.0-44.9, adult
CPT/HCPCS: 85025; 80048; 36415; 83735; 85610; 80076; 84484; 83690; 83880; 74177; 71045; Q9967; J7040; J7030; J0696; J0744; 81003; 81015; 93005; J2405